=== PATIENT | female | born 1935 | race Caucasian/White ===

== ENCOUNTER 2018-02-07 10:22 | Inpatient (IN) | payer MEDICARE ==
[~2018-02-07] VITALS: Ht 170.2 cm; Wt 79.4 kg
[~2018-02-07 10:22] MED LIST: ALEVE220 M1 PO; AREDS PO; ARTHRITIS PAIN650 MG PO; ASPIR 8181 MG PO; ATENOLOL50 MG PO; BACLOFEN10 MG PO; CALTRATE 600 W1 EACH PO; CENTRUM SILVER1 EAC3 PO; DIOVAN80 MG PO; FUROSEMIDE40 MG PO; GEMFIBROZIL600 MG PO; IMIPRAMINE HCL50 MG PO; KLOR-CON 1010 MEQ PO; LEVOTHYROXINE88 MCG PO; METOPROLOL SUCC50 MG PO; OMEPRAZOLE40 MG PO; OSTEO BI-FLEX1 EAC2 PO; PROAIR HFA INH8.5 GM; PROBIOTIC COMP1 EACH PO; SERTRALINE HCL100 MG PO; SYMBICORT 16010.2 GM; TAMSULOSIN HCL0.4 MG PO; ULTRAM 50MG50 MG PO
[2018-02-07] MEDS ORDERED: SODIUM CHLORIDE 0.9% 1000ML 1,000 ML IV STA (10:23)
[2018-02-07 11:42] LABS: BASOPHILS # (AUTO) 0.1 (0.0-0.1); BASOPHILS % 0.7 % (0.0-1.0); EOSINOPHILS % 0.4 % (0.0-6.0); HEMOGLOBIN 12.4 g/dL (12.0-16.0); LYMPHOCYTES # (AUTO) 2.1 (1.0-3.2); LYMPHOCYTES % 30.1 % (18.0-39.1); MEAN CORPUSCULAR HEMOGLOBIN 29.3 pg (28-32); MEAN CORPUSCULAR HGB CONC 32.6 g/dL (31-35); MEAN CORPUSCULAR VOLUME 89.8 fL (81-99); MONOCYTES # (AUTO) 0.6 (0.2-0.8); MONOCYTES % 8.4 % (4.4-11.3); NEUTROPHILS # (AUTO) 4.1 (2.1-6.9); NEUTROPHILS % 59.8 % (38.7-80.0); PLATELET COUNT 251 x10e3/uL (140-360); RED BLOOD COUNT 4.23 x10e6/uL (3.6-5.1); RED CELL DISTRIBUTION WIDTH 13.7 % (11.7-14.4)
--- NOTE | 2018-02-07 11:48 | Diagnostic Imaging Report ---
PROCEDURE: A single AP view of the chest. COMPARISON: 05/31/17 INDICATIONS: nose, rectal bleed FINDINGS: Lines/tubes: None. Lungs: Elevated right hemidiaphragm with decreased right lung volume. Mild central vascular congestion. Pleura: There is no pleural effusion or pneumothorax. Heart and mediastinum: The cardiac silhouette is enlarged. Prominent hilar regions. Bones: No acute bony abnormality. IMPRESSION: Elevated right hemidiaphragm with decreased right lung volume. Mild central vascular congestion. Enlarged cardiac silhouette. Prominent hilar regions, could be due to adenopathy. Dictated by: Memo Mix M.D. on 02/07/2018 at 11:53 Electronically approved by: Memo Mix M.D. on 02/07/2018 at 11:53
[2018-02-07 11:51] LABS: BILIRUBIN,URINE NEGATIVE (NEGATIVE); CLARITY,URINE SL CLOUDY (CLEAR); COLOR,URINE YELLOW (YELLOW); KETONES,URINE NEGATIVE (NEGATIVE); LEUKOCYTE ESTERASE ,URINE 1+ (NEGATIVE); NITRITE,URINE NEGATIVE (NEGATIVE); PROTEIN,URINE DIPSTICK NEGATIVE (NEGATIVE); URINE UROBILINOGEN 0.2 mg/dL (0.2 - 1)
[2018-02-07 11:54] LABS: INR 1.09; PARTIAL THROMBOPLASTIN TIME 30.3 seconds (23.8-35.5); PROTHROMBIN TIME 13.3 seconds (11.9-14.5)
[2018-02-07 11:59] LABS: BACTERIA,URINE MODERATE /HPF; EPITHELIAL CELLS,URINE FEW /LPF
[2018-02-07 12:03] LABS: ALANINE AMINOTRANSFERASE 12 IU/L (0-55); ALBUMIN 3.5 g/dL (3.5-5.0); ALBUMIN/GLOBULIN RATIO 1.2 (0.8-2.0); ALKALINE PHOSPHATASE 66 IU/L (40-150); ANION GAP 13.6 mmol/L (8-16); BLOOD UREA NITROGEN 27 mg/dL (7-26); BUN/CREATININE RATIO 25 (6-25); CALCIUM 9.4 mg/dL (8.4-10.2); CARBON DIOXIDE 29 mmol/L (22-29); CHLORIDE 102 mmol/L (98-107); CREATINE KINASE 21 IU/L (29-168); CREATININE, SERUM 1.06 mg/dL (0.57-1.11); EST GLOMERULAR FILTRATION RATE 49 ML/MIN (60-); GLUCOSE 92 mg/dL (74-118); LIPASE 30 U/L (8-78); POTASSIUM 4.6 mmol/L (3.5-5.1); SODIUM 140 mmol/L (136-145)
--- NOTE | 2018-02-07 12:24 | Diagnostic Imaging Report ---
Exam: Head CT without contrast History: Dizziness Comparison studies: None Technique: Axial images were obtained from the skull base to the vertex. Coronal and sagittal images reconstructed from the axial data. Intravenous contrast: None Findings: Scalp: No abnormalities. Bones: No fractures, blastic or lytic lesions. Brain sulci: Appropriate for age. Ventricles: Normal in size and configuration. No hydrocephalus. Extra-axial spaces: No masses, no fluid collection. Parenchyma: No mass, acute hemorrhage or acute or chronic cortical vascular insults. Subtle hypodensity in the right inferior frontal white matter is nonspecific but may may reflect minimal chronic microvascular ischemic changes. Sellar/suprasellar region: No abnormalities. Craniocervical junction: Patent foramen magnum. No Chiari one malformation. Incidental findings: Atherosclerotic calcifications in the carotid siphons and in the right intradural vertebral artery. Opacified right sphenoid sinus. IMPRESSION: No acute intracranial abnormalities. Signed by: Dr. Brian Orantes M.D. on 02/07/2018 12:21 PM
[2018-02-07] MEDS ORDERED: MECLIZINE HCL 12.5 MG TAB PO ONE (12:45)
[2018-02-07] MEDS ORDERED: ASPIRIN 81 MG CHEW TAB PO ONE (13:00)
[2018-02-07] MEDS ORDERED: ONDANSETRON HCL INJ 2 MG/ML VIAL IV PRN (13:00)
[2018-02-07 13:45] VITALS: BP 187/79
[2018-02-07] MEDS ORDERED: BACLOFEN 10 MG TAB PO PRN (14:30)
[2018-02-07 14:32] VITALS: BP 187/79
[2018-02-07] MEDS: SODIUM CHLORIDE 0.9% 1000ML 1,000 ML IV SCH (15:09)
[2018-02-07] MEDS: HYDRALAZINE HCL 20 MG/ML VIAL IV PRN (15:09)
--- NOTE | 2018-02-07 15:09 | History and Physical ---
PRIMARY CARE PHYSICIAN: Dr. Fox. BARREL PLANER: Dr. House. CHIEF COMPLAINT: Nosebleed and rectal bleeding. HISTORY OF PRESENT ILLNESS: This is an 82-year-old woman with a history of GERD, now developing rectal bleeding for the past 3 weeks. She states that this bleeding has been intermittent for the past year but has been worse in the past 3 weeks. Also this morning patient had a nosebleed. Therefore, she came to the hospital. She only takes aspirin, does not take any anticoagulants and is not on antiplatelets like Plavix or Prasugrel. She is admitted for further evaluation and management. Patient also admits to dizziness for 1 week but no room-spinning. PAST MEDICAL HISTORY: Hypertension, breast cancer and lung cancer, status post right lumpectomy and right upper lobe lung resection in 2002, status post radiation therapy but no chemo, hemorrhoids, hypothyroidism, GERD, BPPV/benign paroxysmal positional vertigo, chronic dizziness with heart catheterization without any significant coronary artery disease and left ventricular ejection fraction of 50% in January of 2011. PAST SURGICAL HISTORY: Appendectomy, cholecystectomy, hysterectomy, right-sided lumpectomy and right upper lobe of the lung resection in 2002. ALLERGIES: PER THE ELECTRONIC MEDICAL RECORDS. FAMILY HISTORY/SOCIAL HISTORY: Patient is a . She has 2 children. No alcohol or illicits. She quit cigarettes 40 years ago. MEDICATIONS: Per the electronic medical records. Medications reviewed. REVIEW OF SYSTEMS: Denies any chest pain, shortness of breath, fever, chills, sweats, nausea, vomiting, diarrhea, back pain. VITAL SIGNS: Have been reviewed. PHYSICAL EXAMINATION GENERAL APPEARANCE: A tired-appearing woman resting in bed. HEENT: Anicteric. Pupils responsive to light. No oral lesions. CARDIOVASCULAR: Normal S1/S2. LUNGS: Moderate breath sounds. ABDOMEN: Soft, nontender, nondistended. EXTREMITIES: No edema or calf tenderness. NEUROLOGICALLY: Alert and oriented x3. Moving all extremities. SKIN: Dry. PSYCHIATRIC: Normal mood. LABS: Reviewed. ASSESSMENT: This is an 82-year-old woman. 1. Gastrointestinal bleed. 2. Chronic dizziness. 3. Epistaxis. 4. History of hemorrhoids. 5. Urinary tract infection. 6. Hypothyroidism. 7. Acute kidney injury. 8. Dehydration that could be contributing to dizziness. 9. History of benign paroxysmal positional vertigo. PLAN 1. Hold aspirin. 2. Use PPI. 3. GI consultation for endoscopy inpatient versus outpatient. 4. Rehydrate patient in setting of acute kidney injury. 5. Treat urinary tract infection with ceftriaxone and follow up cultures. 6. Add meclizine p.r.n. 7. Control blood pressure with home antihypertensive medication. 8. Use SCDs and for GI prophylaxis use PPI. 9. Follow up labs, follow up GI recommendations. Job#: [id number] EV
[2018-02-07 17:04] VITALS: BP 146/67
[2018-02-07] MEDS ORDERED: DIATRIZOATE MEGL/DIATRIZOA SOD 30 ML BTL PO ONE (17:18)
[2018-02-07] MEDS: TAMSULOSIN HCL 0.4 MG CAP PO SCH (17:45)
[2018-02-07] MEDS: GEMFIBROZIL 600 MG TAB PO SCH (17:46)
--- NOTE | 2018-02-07 18:14 | Consultation ---
DATE OF CONSULTATION: February 07, 2018 GASTROENTEROLOGY CONSULTATION REFERRING PHYSICIAN: Dr. Lanza. REASON FOR CONSULTATION: Rectal bleeding, left lower quadrant abdominal pain. HISTORY OF PRESENT ILLNESS: Ms. Hernandez is a pleasant 82-year-old woman who came in with urinary tract infection. She has been having intermittent bright red blood per rectum which colors the toilet water red and also is on toilet paper. It seems over the past few weeks it has been getting worse. She saw her primary doctor and received suppositories; however, did not improve the bleeding. She has not had any clots or melena. She did have a history of nosebleeds. She was feeling dizzy without symptoms of vertigo. She had no chest pain or shortness of breath. PAST MEDICAL HISTORY: Diverticulitis, hypertension, breast cancer, lung cancer, hemorrhoids with history of resection, hypothyroidism, GERD, BPV, chronic dizziness, cardiac catheterization without CAD in 2010. PAST SURGICAL HISTORY: Includes appendectomy, cholecystectomy, hysterectomy, right-sided lumpectomy, right upper lobe lung resection in 2002, colonoscopy approximately 3 years ago and hemorrhoid surgery. MEDICATIONS AND ALLERGIES: Please see MAR, medication reconciliation form. SOCIAL HISTORY: No alcohol, tobacco or illicit substances. She has a remote tobacco history. FAMILY HISTORY: Reviewed and noncontributory. REVIEW OF SYSTEMS: Twelve systems positive for that mentioned in history of present illness, otherwise unremarkable. PHYSICAL EXAMINATION: GENERAL: Pleasant, alert, oriented and in no acute distress. HEENT: Pupils are equal, round and reactive to light. NECK: Supple. LUNGS: Clear. CARDIOVASCULAR: S1 and S2. ABDOMEN: Soft. She is quite tender in the left lower quadrant without rebound, guarding or mass. EXTREMITIES: No clubbing, cyanosis or edema. PSYCHIATRIC: Calm and cooperative. NEUROLOGIC: Nonfocal. HEME/ONC: No bruising or adenopathy. Electronic health records reviewed for laboratory and radiologic studies as well as history. ASSESSMENT: 1. Rectal bleeding. 2. Left lower quadrant abdominal pain with history of diverticulitis. 3. Dizziness. 4. Epistaxis. 5. History of hemorrhoids. PLAN: At the current time, will order CAT scan to evaluate for underlying diverticulitis, which can be associated with UTI. If she has diverticulitis, will just treat that and plan outpatient colonoscopy. She reports she will have a very difficult time with a bowel prep for colonoscopy at home due to decreased mobility from her hip. We may need to perform a colonoscopy here after bowel prep tomorrow, and colonoscopy would be on Wednesday morning. Will follow tomorrow the results of CAT scan and see what we find. In the meantime, I agree with antibiotics and monitoring the patient. Will start clear liquids. Thank you very much for asking me to see Ms. Hernandez. Any questions or concerns, please do not hesitate to contact me. Job#: [id number]
[2018-02-07 19:47] LABS: CREATINE KINASE 23 IU/L (29-168)
[2018-02-07 20:35] VITALS: BP 139/60
[2018-02-07] MEDS ORDERED: CEFTRIAXONE SOD 1 GM VIAL IV ONE (21:00)
[2018-02-07] MEDS: SERTRALINE HCL 100 MG TAB PO SCH (22:39)
[2018-02-07] MEDS: MECLIZINE HCL 12.5 MG TAB PO SCH (22:39)
[2018-02-07] MEDS: VALSARTAN 80 MG TAB PO SCH (22:39)
[2018-02-07] MEDS ORDERED: SODIUM CHLORIDE 0.9% 50ML 50 ML ONE (23:02)
[2018-02-07] MEDS ORDERED: IOPAMIDOL 370 MG/ML 200 ML INFUS..BTL INJ ONE (23:02)
--- NOTE | 2018-02-07 23:12 | Diagnostic Imaging Report ---
EXAM: CT ABDOMEN AND PELVIS with IV CONTRAST DATE: 02/07/2018 4:58 PM Time stamp on Exam: 2211 hours INDICATION: Dizziness, GI bleed, right lower quadrant pain COMPARISON: None available TECHNIQUE: The abdomen and pelvis were scanned using a multidetector helical scanner. Coronal and sagittal reformations were obtained. Routine protocol performed. IV Contrast: 100 cc Isovue-370 Oral Contrast: Gastrografin CTDIvol has been reviewed. It is below the limits set by the Radiation Protocol Committee (RPC). FINDINGS: LOWER THORAX: No consolidations LIVER: No masses BILIARY: Cholecystectomy. No ductal dilation. SPLEEN: No masses PANCREAS: No masses ADRENALS: No nodules KIDNEYS: Symmetric perfusion. Peripherally calcified 1.2 cm cyst inferior pole of the right kidney. No hydronephrosis. There is a 3 cm lesion in the inferior pole of the left kidney that does not measure simple water density. GI TRACT: No distention, wall thickening or evidence of obstruction. Marked sigmoid colon diverticulosis. No fat stranding to suggests active inflammation. The appendix is not identified. VESSELS: Advanced atherosclerotic changes of the abdominal aorta without aneurysm. PERITONEUM/RETROPERITONEUM: No free air or fluid LYMPH NODES: No lymphadenopathy REPRODUCTIVE ORGANS: The uterus is not visualized. No adnexal masses. BLADDER: Unremarkable SOFT TISSUES: Unremarkable BONES: No suspicious bone lesions. IMPRESSION: Advanced sigmoid colon diverticulosis without CT findings of acute diverticulitis. Indeterminate 3 cm lesion in the inferior pole of the left kidney that does not measure simple cystic fluid. A nonemergent CT or MRI of the abdomen with and without IV contrast, renal mass protocol is recommended for further evaluation. Signed by: Dr. Shari Murdock M.D. on 02/07/2018 11:08 PM
[2018-02-08] VITALS (7 sets, daily range): BP systolic 133–187; BP diastolic 62–87
[2018-02-08] MEDS: HYDRALAZINE HCL 20 MG/ML VIAL IV PRN (00:15)
[2018-02-08] MEDS: SODIUM CHLORIDE 0.9% 1000ML 1,000 ML IV SCH ×2 (02:09→14:49)
[2018-02-08 05:47] LABS: BASOPHILS % 0.6 % (0.0-1.0); EOSINOPHILS % 0.5 % (0.0-6.0); HEMATOCRIT 35.4 % (34.2-44.1); HEMOGLOBIN 11.7 g/dL (12.0-16.0); LYMPHOCYTES # (AUTO) 2.2 (1.0-3.2); LYMPHOCYTES % 34.8 % (18.0-39.1); MEAN CORPUSCULAR HEMOGLOBIN 29.7 pg (28-32); MEAN CORPUSCULAR HGB CONC 33.1 g/dL (31-35); MEAN CORPUSCULAR VOLUME 89.8 fL (81-99); MONOCYTES # (AUTO) 0.5 (0.2-0.8); MONOCYTES % 7.6 % (4.4-11.3); NEUTROPHILS # (AUTO) 3.6 (2.1-6.9); NEUTROPHILS % 56.2 % (38.7-80.0); PLATELET COUNT 220 x10e3/uL (140-360); RED BLOOD COUNT 3.94 x10e6/uL (3.6-5.1); RED CELL DISTRIBUTION WIDTH 13.6 % (11.7-14.4)
[2018-02-08 06:11] LABS: ALANINE AMINOTRANSFERASE 11 IU/L (0-55); ALBUMIN 3.2 g/dL (3.5-5.0); ALBUMIN/GLOBULIN RATIO 1.3 (0.8-2.0); ALKALINE PHOSPHATASE 57 IU/L (40-150); ANION GAP 13.3 mmol/L (8-16); BLOOD UREA NITROGEN 20 mg/dL (7-26); BUN/CREATININE RATIO 22 (6-25); CALCIUM 9.1 mg/dL (8.4-10.2); CARBON DIOXIDE 26 mmol/L (22-29); CHLORIDE 106 mmol/L (98-107); CREATINE KINASE 23 IU/L (29-168); CREATININE, SERUM 0.92 mg/dL (0.57-1.11); EST GLOMERULAR FILTRATION RATE 58 ML/MIN (60-); GLUCOSE 107 mg/dL (74-118); POTASSIUM 4.3 mmol/L (3.5-5.1); SODIUM 141 mmol/L (136-145)
[2018-02-08] MEDS: LEVOTHYROXINE SODIUM 88 MCG TAB PO SCH (06:15)
--- NOTE | 2018-02-08 07:32 | Progress Note ---
DATE: February 08, 2018 TIME: 7:09 a.m. OVERNIGHT: Continues to have some rectal bleeding. REVIEW OF SYSTEMS: Denies any dizziness, chest pain, headache, blurred vision, or back pain. PHYSICAL EXAMINATION VITAL SIGNS: Reviewed. GENERAL: A tired-appearing woman resting in bed. HEENT: Anicteric. CARDIOVASCULAR: Normal S1 and S2. LUNGS: Moderate breath sounds. ABDOMEN: Soft and nondistended. She has tenderness in the lower quadrant region. EXTREMITIES: No edema. SKIN: Dry. PSYCHIATRIC: Flat affect. LABS: Reviewed. MEDICATIONS: Reviewed. ASSESSMENT: An 82-year-old woman with: 1. Gastrointestinal bleed. 2. Chronic dizziness. 3. Benign positional vertigo. 4. Epistaxis. 5. History of hemorrhoidectomy. 6. Urinary tract infection. 7. Hypothyroidism. 8. Acute kidney injury. 9. Dehydration. 10. A 3-cm lesion in the left kidney. 11. Sigmoid colon diverticulosis. PLAN 1. Continue medication regimen. 2. Continue antibiotics. 3. Follow up cultures. 4. Follow up GI recommendations. 5. CT scan of the abdomen shows sigmoid colon diverticulosis, but no inflammatory changes. 6. Will obtain MRI of the abdomen to evaluate the 3-cm lesion of the left kidney. 7. Renal function improving. Job#: [id number] FIDENCIO
[2018-02-08] MEDS ORDERED: GADOBENATE DIMEGLUMINE 1 ML IV ONE (08:40)
[2018-02-08] MEDS: PANTOPRAZOLE 40 MG 10ML VIAL IV SCH (08:48)
[2018-02-08] MEDS: METOPROLOL SUCCINATE 50 MG TAB XL PO SCH (08:48)
[2018-02-08] MEDS: MECLIZINE HCL 12.5 MG TAB PO SCH ×2 (08:48→21:17)
[2018-02-08] MEDS: GEMFIBROZIL 600 MG TAB PO SCH ×2 (08:48→17:06)
[2018-02-08] MEDS: TAMSULOSIN HCL 0.4 MG CAP PO SCH ×2 (08:48→17:06)
[2018-02-08] MEDS: IMIPRAMINE HCL 50 MG TAB PO SCH (11:38)
[2018-02-08] MEDS: ACETAMINOPHEN 325 MG TAB PO PRN (12:29)
[2018-02-08] MEDS ORDERED: PEG (High)/E-LYTE SOLN 4,000 ML BTL PO NR (15:15)
[2018-02-08] MEDS: SERTRALINE HCL 100 MG TAB PO SCH (21:17)
[2018-02-08] MEDS: VALSARTAN 80 MG TAB PO SCH (21:17)
[2018-02-09] VITALS (7 sets, daily range): BP systolic 137–197; BP diastolic 64–79
[2018-02-09] MEDS: SODIUM CHLORIDE 0.9% 1000ML 1,000 ML IV SCH ×3 (01:54→23:31)
[2018-02-09] MEDS: LEVOTHYROXINE SODIUM 88 MCG TAB PO SCH (04:14)
[2018-02-09] MEDS ORDERED: Meclizine Hcl PO (07:43)
[2018-02-09] MEDS ORDERED: PANTOPRAZOLE SO40 MG PO (07:43)
[2018-02-09] MEDS ORDERED: KEFLEX500 MG PO (07:47)
[2018-02-09] MEDS: TAMSULOSIN HCL 0.4 MG CAP PO SCH ×2 (07:48→16:35)
[2018-02-09] MEDS: MECLIZINE HCL 12.5 MG TAB PO SCH ×2 (07:48→20:26)
[2018-02-09] MEDS: GEMFIBROZIL 600 MG TAB PO SCH ×2 (07:49→16:35)
[2018-02-09] MEDS: IMIPRAMINE HCL 50 MG TAB PO SCH (07:49)
[2018-02-09] MEDS: METOPROLOL SUCCINATE 50 MG TAB XL PO SCH (07:49)
[2018-02-09] MEDS: HYDRALAZINE HCL 20 MG/ML VIAL IV PRN (08:16)
[2018-02-09] MEDS: CEFTRIAXONE SOD 1 GM VIAL IV SCH (08:16)
[2018-02-09] MEDS: PANTOPRAZOLE 40 MG 10ML VIAL IV SCH (08:16)
[2018-02-09 10:05] LABS: BASOPHILS % 0.7 % (0.0-1.0); EOSINOPHILS # (AUTO) 0.1 (0.0-0.4); EOSINOPHILS % 0.8 % (0.0-6.0); HEMATOCRIT 35.6 % (34.2-44.1); HEMOGLOBIN 11.6 g/dL (12.0-16.0); LYMPHOCYTES # (AUTO) 1.6 (1.0-3.2); LYMPHOCYTES % 27.3 % (18.0-39.1); MEAN CORPUSCULAR HEMOGLOBIN 29.3 pg (28-32); MEAN CORPUSCULAR HGB CONC 32.6 g/dL (31-35); MEAN CORPUSCULAR VOLUME 89.9 fL (81-99); MONOCYTES # (AUTO) 0.5 (0.2-0.8); MONOCYTES % 8.6 % (4.4-11.3); NEUTROPHILS # (AUTO) 3.7 (2.1-6.9); NEUTROPHILS % 62.1 % (38.7-80.0); PLATELET COUNT 216 x10e3/uL (140-360); RED BLOOD COUNT 3.96 x10e6/uL (3.6-5.1); RED CELL DISTRIBUTION WIDTH 13.7 % (11.7-14.4)
[2018-02-09 10:28] LABS: ANION GAP 12.9 mmol/L (8-16); BLOOD UREA NITROGEN 14 mg/dL (7-26); BUN/CREATININE RATIO 18 (6-25); CALCIUM 8.8 mg/dL (8.4-10.2); CARBON DIOXIDE 26 mmol/L (22-29); CHLORIDE 107 mmol/L (98-107); CREATININE, SERUM 0.77 mg/dL (0.57-1.11); EST GLOMERULAR FILTRATION RATE > 60 ML/MIN (60-); GLUCOSE 99 mg/dL (74-118); POTASSIUM 3.9 mmol/L (3.5-5.1); SODIUM 142 mmol/L (136-145)
[2018-02-09] MEDS: ACETAMINOPHEN 325 MG TAB PO PRN ×2 (14:24→20:26)
[2018-02-09] MEDS: HYDROCORTISONE 2.5% PR CRM 1 OZ TUBE PR SCH ×2 (14:24→20:26)
[2018-02-09] MEDS ORDERED: PROPOFOL IV EMULSION 10 MG/ML 50 ML VIAL ONE (17:17)
[2018-02-09] MEDS ORDERED: LIDOCAINE HCL 2% LOCAL INJ 5 ML SDV VIAL INJ ONE (17:17)
[2018-02-09] MEDS ORDERED: CITRATE OF MAGNESIA 300ML BOTTLE PO ONE (20:00)
[2018-02-09] MEDS: VALSARTAN 80 MG TAB PO SCH (20:26)
[2018-02-09] MEDS: SERTRALINE HCL 100 MG TAB PO SCH (20:26)
--- NOTE | 2018-02-09 22:37 | Consultation ---
DATE OF CONSULTATION: February 09, 2018 CHIEF COMPLAINT: Rectal bleeding. HISTORY OF PRESENT ILLNESS: The patient is 82-year-old female who is admitted with 2 weeks' history of chronic intermittent rectal bleeding of bright red blood. Patient has known history of hemorrhoidal problems, status post previous hemorrhoidectomy. Patient denied constipation or diarrhea. PAST MEDICAL HISTORY: Positive for hypertension, breast cancer, lung cancer, GERD, hypothyroidism. SURGICAL HISTORY: Positive for lung resection, right lumpectomy, hemorrhoidectomy, appendectomy, cholecystectomy, and hysterectomy. SOCIAL HABITS: The patient denied current smoking, alcohol abuse. REVIEW OF SYSTEMS: No chest pain, no shortness of breath. ALLERGIES: SHE IS ALLERGIC TO SULFA. PHYSICAL EXAMINATION: VITAL SIGNS: Stable, afebrile. GENERAL: Patient is awake, alert, in no apparent distress. HEENT: Sclerae nonicteric. NECK: Supple. LUNGS: Clear. HEART: Regular rate and rhythm. ABDOMEN: Soft, nontender. : Anal exam revealed nonbleeding internal and external hemorrhoids. LABORATORY DATA: White cell count of 6, hemoglobin of 11. Creatinine of 1.0. Colonoscopy today revealed nonbleeding diverticulosis in the left colon as well as internal and external hemorrhoids, nonactive at present time. ASSESSMENT: Chronic recurrent rectal bleeding most likely secondary to hemorrhoidal bleeding. PLAN: Recommend stapled hemorrhoidectomy under anesthesia. Attendant risks discussed with patient. Thank you. Job#: [id number]
[2018-02-10] VITALS (7 sets, daily range): BP systolic 104–199; BP diastolic 51–81
[2018-02-10] MEDS: LEVOTHYROXINE SODIUM 88 MCG TAB PO SCH (04:31)
[2018-02-10 05:34] LABS: BASOPHILS % 0.6 % (0.0-1.0); EOSINOPHILS # (AUTO) 0.1 (0.0-0.4); EOSINOPHILS % 0.7 % (0.0-6.0); HEMATOCRIT 34.4 % (34.2-44.1); HEMOGLOBIN 11.2 g/dL (12.0-16.0); LYMPHOCYTES # (AUTO) 2.3 (1.0-3.2); LYMPHOCYTES % 33.5 % (18.0-39.1); MEAN CORPUSCULAR HEMOGLOBIN 29.4 pg (28-32); MEAN CORPUSCULAR HGB CONC 32.6 g/dL (31-35); MEAN CORPUSCULAR VOLUME 90.3 fL (81-99); MONOCYTES # (AUTO) 0.6 (0.2-0.8); MONOCYTES % 8.3 % (4.4-11.3); NEUTROPHILS # (AUTO) 3.8 (2.1-6.9); NEUTROPHILS % 56.5 % (38.7-80.0); PLATELET COUNT 207 x10e3/uL (140-360); RED BLOOD COUNT 3.81 x10e6/uL (3.6-5.1)
[2018-02-10 05:58] LABS: ANION GAP 11.7 mmol/L (8-16); BLOOD UREA NITROGEN 15 mg/dL (7-26); BUN/CREATININE RATIO 20 (6-25); CALCIUM 8.8 mg/dL (8.4-10.2); CARBON DIOXIDE 25 mmol/L (22-29); CHLORIDE 110 mmol/L (98-107); CREATININE, SERUM 0.75 mg/dL (0.57-1.11); EST GLOMERULAR FILTRATION RATE > 60 ML/MIN (60-); GLUCOSE 115 mg/dL (74-118); POTASSIUM 3.7 mmol/L (3.5-5.1); SODIUM 143 mmol/L (136-145)
[2018-02-10] MEDS: SODIUM CHLORIDE 0.9% 1000ML 1,000 ML IV SCH ×2 (07:29→20:00)
[2018-02-10] MEDS ORDERED: LABETALOL HCL 5 MG/ML 20ML VIAL IV STA (07:42)
[2018-02-10] MEDS: IMIPRAMINE HCL 50 MG TAB PO SCH (08:24)
[2018-02-10] MEDS: GEMFIBROZIL 600 MG TAB PO SCH ×2 (08:24→16:39)
[2018-02-10] MEDS: HYDROCORTISONE 2.5% PR CRM 1 OZ TUBE PR SCH ×3 (08:24→21:00)
[2018-02-10] MEDS: CEFTRIAXONE SOD 1 GM VIAL IV SCH (08:24)
[2018-02-10] MEDS: TAMSULOSIN HCL 0.4 MG CAP PO SCH ×2 (08:24→16:39)
[2018-02-10] MEDS: METOPROLOL SUCCINATE 50 MG TAB XL PO SCH (08:24)
[2018-02-10] MEDS: MECLIZINE HCL 12.5 MG TAB PO SCH ×2 (08:24→21:33)
[2018-02-10] MEDS: PANTOPRAZOLE 40 MG 10ML VIAL IV SCH (08:24)
[2018-02-10] MEDS: HYDRALAZINE HCL 20 MG/ML VIAL IV PRN (12:09)
[2018-02-10] MEDS ORDERED: GELATIN SPONGE SZ 100 ONE (12:58)
[2018-02-10] MEDS ORDERED: BUPIVACAINE 0.5%/EPI 30 ML SDV INJ ONE (12:58)
[2018-02-10] MEDS ORDERED: LIDOCAINE HCL 2% 30 ML TUBE ONE (12:58)
[2018-02-10] MEDS ORDERED: MORPHINE SULFATE INJ 4 MG/ML INJ IV PRN (14:45)
[2018-02-10] MEDS ORDERED: FENTANYL CITRATE/PF 100MCG/2 ML INJ ONE ×2 (14:53→17:53)
[2018-02-10] MEDS ORDERED: ACETAMINOPHEN 1000 MG/100 ML 100 ML IV ONE (15:00)
[2018-02-10] MEDS ORDERED: KETOROLAC TROMETHAMINE 30 MG/ML VIAL ONE (15:00)
--- NOTE | 2018-02-10 15:21 | Operative Report ---
DATE OF PROCEDURE: February 10, 2018 PREOPERATIVE DIAGNOSIS: Prolapsing hemorrhoidal bleeding. POSTOPERATIVE DIAGNOSIS: Prolapsing hemorrhoidal bleeding. OPERATIVE PROCEDURE: Stapled hemorrhoidectomy. ANESTHESIA: General endotracheal. INDICATIONS: An 82-year-old female with history of rectal bleeding, and colonoscopy revealed internal and external hemorrhoids with prolapse. Patient has consented for hemorrhoidectomy with all attendant risks discussed. PROCEDURE FINDINGS: Large prolapsed internal hemorrhoids and external component. DESCRIPTION OF PROCEDURE: The patient was brought to the OR and intubated. She was then repositioned in lithotomy, the anal area prepped with Betadine and draped in sterile fashion. An anal dilator was inserted. Local anesthesia of quarter-strength Marcaine with epinephrine was injected around the anal opening for a local block. Using the PPH instrument, the anal retractor was first, a stitch to the skin with interrupted 2-0 Vicryl stitches. We then proceeded to use the suture placer to initiate the pursestring stitch at 3 o'clock position 2 cm above the dentate line using 0 Prolene suture. We proceeded to place 3 submucosal stitches around the anal canal per quarters of the circumference until the pursestring stitches complete. The PPH staple instrument was then inserted with the anvil beyond the pursestring stitch, which was then tied down to the shaft of the instrument with a surgeon's knot. Traction was maintained on the pursestring stitch in a caudad direction as we closed the instrument, dropping the hemorrhoid tissue inside the head of the instrument and the anvil. The instrument was fired and held for 30 seconds. We then proceeded to open the instrument and remove the instrument from the anal canal. The staple line was checked for bleeding points, hemostasis achieved. We then inserted a Gelfoam with Xylocaine jelly into the anal canal for postoperative pain control and hemostasis. Patient was then extubated and transported to the recovery room in guarded condition. Estimated blood loss 5 mL. Job#: [id number] EV
[2018-02-10] MEDS ORDERED: DEXAMETHASONE SOD PHOS INJ 4 MG/ML VIAL ONE (17:39)
[2018-02-10] MEDS ORDERED: LIDOCAINE HCL 2% LOCAL INJ 5 ML SDV VIAL INJ ONE (17:39)
[2018-02-10] MEDS ORDERED: PROPOFOL IV EMULSION 10 MG/ML 20 ML VIAL ONE (17:39)
[2018-02-10] MEDS ORDERED: ONDANSETRON HCL INJ 2 MG/ML VIAL ONE (17:39)
[2018-02-10] MEDS ORDERED: SEVOFLURANE INHAL SOLN 250 ML PEN BTL ONE (17:39)
[2018-02-10] MEDS: VALSARTAN 80 MG TAB PO SCH (21:00)
[2018-02-10] MEDS: SERTRALINE HCL 100 MG TAB PO SCH (21:33)
[2018-02-11] VITALS: BP 120/57
[2018-02-11 04:50] LABS: BASOPHILS % 0.5 % (0.0-1.0); EOSINOPHILS % 0.5 % (0.0-6.0); HEMATOCRIT 32.4 % (34.2-44.1); HEMOGLOBIN 10.2 g/dL (12.0-16.0); LYMPHOCYTES # (AUTO) 1.3 (1.0-3.2); LYMPHOCYTES % 19.2 % (18.0-39.1); MEAN CORPUSCULAR HEMOGLOBIN 29.4 pg (28-32); MEAN CORPUSCULAR HGB CONC 31.5 g/dL (31-35); MEAN CORPUSCULAR VOLUME 93.4 fL (81-99); MONOCYTES # (AUTO) 0.5 (0.2-0.8); MONOCYTES % 8.1 % (4.4-11.3); NEUTROPHILS # (AUTO) 4.7 (2.1-6.9); NEUTROPHILS % 71.2 % (38.7-80.0); PLATELET COUNT 225 x10e3/uL (140-360); RED BLOOD COUNT 3.47 x10e6/uL (3.6-5.1); RED CELL DISTRIBUTION WIDTH 14.1 % (11.7-14.4)
[2018-02-11 05:14] LABS: ANION GAP 11.1 mmol/L (8-16); BLOOD UREA NITROGEN 15 mg/dL (7-26); BUN/CREATININE RATIO 19 (6-25); CALCIUM 8.3 mg/dL (8.4-10.2); CARBON DIOXIDE 26 mmol/L (22-29); CHLORIDE 110 mmol/L (98-107); CREATININE, SERUM 0.77 mg/dL (0.57-1.11); EST GLOMERULAR FILTRATION RATE > 60 ML/MIN (60-); GLUCOSE 105 mg/dL (74-118); POTASSIUM 4.1 mmol/L (3.5-5.1); SODIUM 143 mmol/L (136-145)
[2018-02-11] MEDS: LEVOTHYROXINE SODIUM 88 MCG TAB PO SCH (06:10)
[2018-02-11] MEDS: CEFTRIAXONE SOD 1 GM VIAL IV SCH (07:45)
[2018-02-11 08:07] VITALS: BP 154/70
--- NOTE | 2018-02-11 09:08 | Progress Note ---
DATE: February 09, 2018 TIME: 7 a.m. OVERNIGHT: The patient positive for E. coli in the urine. REVIEW OF SYSTEMS: Denies any dizziness, chest pain, shortness of breath. Denies any back pain, leg pain or blurred vision. PHYSICAL EXAMINATION VITAL SIGNS: Have been reviewed. GENERAL: A tired-appearing woman resting in bed. HEENT: Anicteric. CARDIOVASCULAR: Normal S1 and S2. LUNGS: Moderate breath sounds. ABDOMEN: Soft and nontender. Mild pain in the left lower quadrant. EXTREMITIES: No edema. SKIN: Dry. PSYCHIATRIC: Flat affect. LABS: Reviewed. MEDICATIONS: Reviewed. ASSESSMENT: An 82-year-old woman with: 1. Gastrointestinal bleed. 2. Chronic dizziness. 3. Escherichia coli urinary tract infection. 4. Benign positional vertigo. 5. Epistaxis. 6. History of hemorrhoidectomy. 7. Urinary tract infection. 8. Hypothyroidism. 9. Acute kidney injury. 10. Dehydration. 11. A 3-cm lesion in the left kidney. 12. Sigmoid colon diverticulosis. PLAN 1. Continue treatment of E. coli urinary tract infection. 2. Follow up with GI recommendations. 3. The patient will follow up outpatient for the 3-cm lesion in the left kidney, which is chronic and she is aware of. Job#: [id number] FIDENCIO
--- NOTE | 2018-02-11 09:30 | Progress Note ---
DATE: February 10, 2018 TIME: 7:35 a.m. OVERNIGHT: Patient found to have hemorrhoids, likely cause of the bleeding. Surgery has been consulted for hemorrhoidectomy. REVIEW OF SYSTEMS: Denies any dizziness, chest pain, shortness of breath, fever, chills, sweats, leg pain, back pain, blurred vision. PHYSICAL EXAMINATION: VITAL SIGNS: Reviewed. GENERAL APPEARANCE: Tired-appearing woman resting in bed. HEENT: Anicteric. CARDIOVASCULAR: Normal S1 and S2. LUNGS: Moderate breath sounds. ABDOMEN: Soft, nondistended. Mild tenderness in left lower quadrant. EXTREMITIES: No edema or calf tenderness. NEUROLOGICAL: Alert and appropriate. Moving all extremities. SKIN: Dry. PSYCHIATRIC: Flat affect. LABS: Reviewed. MEDICATIONS: Reviewed. ASSESSMENT: An 82-year-old woman. 1. Internal hemorrhoids. 2. Gastrointestinal bleed. 3. Chronic dizziness. 4. Benign paroxysmal positional vertigo. 5. Escherichia coli urinary tract infection. 6. Epistaxis. 7. Acute kidney injury. 8. Hypothyroidism. 9. Dehydration. 10. A 3-cm lesion in left kidney, which is chronic. 11. Sigmoid colon diverticulosis. PLAN: 1. Surgery consulted for possible hemorrhoidectomy. 2. Continue pain control. 3. Continue treatment for E. coli urinary tract infection. 4. Follow up counts. 5. Patient will followup outpatient for the management of 3-cm lesion in the left kidney. Job#: [id number]
[2018-02-11] MEDS: PANTOPRAZOLE 40 MG 10ML VIAL IV SCH (09:46)
[2018-02-11] MEDS: GEMFIBROZIL 600 MG TAB PO SCH (09:46)
[2018-02-11] MEDS: MECLIZINE HCL 12.5 MG TAB PO SCH (09:46)
[2018-02-11] MEDS: IMIPRAMINE HCL 50 MG TAB PO SCH (09:46)
[2018-02-11] MEDS: TAMSULOSIN HCL 0.4 MG CAP PO SCH (09:46)
[2018-02-11] MEDS: METOPROLOL SUCCINATE 50 MG TAB XL PO SCH (09:47)
[2018-02-11] MEDS: HYDROCORTISONE 2.5% PR CRM 1 OZ TUBE PR SCH ×2 (09:51→15:30)
[2018-02-11] MEDS: SODIUM CHLORIDE 0.9% 1000ML 1,000 ML IV SCH (10:09)
[2018-02-11 10:51] VITALS: BP 154/70
[2018-02-11 11:51] VITALS: BP 129/58
--- NOTE | 2018-02-11 13:11 | Discharge Summary ---
PRINCIPAL DIAGNOSES 1. Internal hemorrhoid, status post stapling and hemorrhoidectomy. 2. Escherichia coli urinary tract infection. 3. Gastrointestinal bleed, likely secondary to bleeding hemorrhoid. 4. Acute kidney injury. 5. Epistaxis. 6. Benign paroxysmal positional vertigo. 7. Chronic dizziness. 8. Sigmoid colon diverticulosis. SECONDARY DIAGNOSIS: A 3-cm lesion of the left kidney. CHIEF COMPLAINT: Rectal bleeding. HISTORY OF PRESENT ILLNESS: This is an 82-year-old woman with rectal bleeding. Please refer to the H and P for further details. HOSPITAL COURSE: The patient found to have internal hemorrhoids, underwent stapled hemorrhoidectomy. Also had E. coli urinary tract infection for which she was treated with medication regimen. Patient is doing better after hemorrhoidectomy. No more bleeding. She was also dehydrated and was rehydrated. She had dizziness likely due to chronic blood loss. Patient does have a 3-cm lesion on left kidney which will follow up outpatient as a chronic finding. She is aware of the finding. She also has sigmoid colon diverticulosis. Patient doing better and currently appropriate for discharge once cleared by surgery. DISCHARGE MEDICATIONS: Per electronic medical record. FOLLOWUP: Primary care doctor in 1 week. Also follow up with GI service. CONDITION ON DISCHARGE: Stable and improved. DISCHARGE LOCATION: Home. PILI SMITH MD Job#: [id number] TA
== END 2018-02-11 15:40 | disposition home or self-care (01) | DRG 348 ==
LOC: ER 10:22 → ERHOLD 13:06 → MED/SURG 13:31
PROVIDERS: ADMIT Internal Medicine; ATTEND Internal Medicine
PROC: 0DJD8ZZ Inspection of Lower Intestinal Tract, Via Natural or Artificial Opening Endoscopic (ICD-10-PCS; 2018-02-09)
PROC: 06LY3ZC Occlusion of Hemorrhoidal Plexus, Percutaneous Approach (ICD-10-PCS; principal; 2018-02-10 13:00)
DX: K64.8 Other hemorrhoids (principal); N39.0 Urinary tract infection, site not specified; N17.9 Acute kidney failure, unspecified; K57.32 Diverticulitis of large intestine without perforation or abscess without bleeding; K62.5 Hemorrhage of anus and rectum; Z85.3 Personal history of malignant neoplasm of breast; E86.0 Dehydration; E03.9 Hypothyroidism, unspecified; R04.0 Epistaxis; B96.20 Unspecified Escherichia coli [E. coli] as the cause of diseases classified elsewhere; H81.10 Benign paroxysmal vertigo, unspecified ear; Z88.2 Allergy status to sulfonamides; N28.9 Disorder of kidney and ureter, unspecified
CPT/HCPCS: 36415; 45378; 70450; 71045; 74177; 80048; 80053; 81001; 82270; 82550; 82553; 83690; 83880; 84443; 84484; 85025; 85610; 85730; 86850; 86900; 87086; 87186; 88304; 93005; 99284; J0360; J0696; J1100; J1885; J2001; J2270; J2405; J7030; Q9967

== ENCOUNTER → 2018-05-11 | Day surgery (SDC) | payer MEDICARE ==
[2018-05-09 13:26] LABS: BASOPHILS # (AUTO) 0.1 (0.0-0.1); BASOPHILS % 0.7 % (0.0-1.0); EOSINOPHILS % 0.5 % (0.0-6.0); LYMPHOCYTES # (AUTO) 3.1 (1.0-3.2); LYMPHOCYTES % 35.7 % (18.0-39.1); MEAN CORPUSCULAR HEMOGLOBIN 29.8 pg (28-32); MEAN CORPUSCULAR HGB CONC 32.5 g/dL (31-35); MEAN CORPUSCULAR VOLUME 91.7 fL (81-99); MONOCYTES # (AUTO) 0.7 (0.2-0.8); MONOCYTES % 8.5 % (4.4-11.3); NEUTROPHILS # (AUTO) 4.6 (2.1-6.9); NEUTROPHILS % 53.6 % (38.7-80.0); PLATELET COUNT 321 x10e3/uL (140-360); RED BLOOD COUNT 4.36 x10e6/uL (3.6-5.1); RED CELL DISTRIBUTION WIDTH 14.9 % (11.7-14.4)
[~2018-05-11] MED LIST changes: +ACETAMINOPHEN 1000 MG/100 ML IV ONE; +ASPIR 8181 MG; +BENICAR5 MG; +BUPIVACAINE 0.5%/EPI 30 ML SDV INJ ONE; +CEFAZOLIN SOD 2 GM/D5W 50ML 50 ML IV ONE; +DEXAMETHASONE SOD PHOS INJ 4 MG/ML VIAL ONE; +FENTANYL CITRATE/PF 100MCG/2 ML INJ ONE; +ISOFLURANE INHAL SOLN 250 ML BTL INH ONE; +KEFLEX500 MG PO; +KETOROLAC TROMETHAMINE 30 MG/ML VIAL ONE; +Meclizine Hcl PO; +NEXIUM40 MG; +NORCO 5-325 TA1 EACH PO; +ONDANSETRON HCL INJ 2 MG/ML VIAL ONE; +PANTOPRAZOLE SO40 MG PO; +PROPOFOL IV EMULSION 10 MG/ML 20 ML VIAL ONE
[2018-05-11 09:30] VITALS: BP 145/69
--- NOTE | 2018-05-12 14:04 | Operative Report ---
DATE OF PROCEDURE: May 11, 2018 PREOPERATIVE DIAGNOSES 1. Right knee lateral meniscus tear. 2. Right knee degenerative joint disease of the knee. POSTOPERATIVE DIAGNOSES 1. Right knee lateral meniscus tear. 2. Right knee degenerative joint disease of the knee. PROCEDURES PERFORMED 1. Right knee examination under anesthesia. 2. Right knee arthroscopy. 3. Right knee partial lateral meniscectomy. 4. Right knee chondroplasties of the patella, trochlea, medial femoral condyle, medial tibial plateau, lateral femoral condyle and lateral tibial plateau. HYDRAULIC CHAIR ASSEMBLER: Mecca Morrison ANESTHESIA: General endotracheal intubation anesthesia. IV FLUIDS: Per the anesthesia record. OPERATIVE PROCEDURE IN DETAIL: Ms. Hernandez was taken to the operating room and placed in the supine position on the operating table. Following induction of general anesthesia as well as endotracheal intubation, the patient's right lower extremity was examined under anesthesia. Patient was found to have a mild effusion within the knee joint but an otherwise ligamentously stable knee. The lower extremity was prepped and draped in standard surgical fashion. A 2-portal technique was used to provide this patient arthroscopic evaluation of the knee joint. Examination of the suprapatellar pouch, medial and lateral gutters found no evidence of loose bodies. There was, however, chondromalacia of the patella and trochlear surfaces. The scope was advanced to the medial compartment. Chondromalacia of the medial femoral condyle and medial tibial plateau was encountered. A 4.0 shaver was used to provide chondroplasties of these surfaces. The scope was advanced to the intercondylar notch. The anterior cruciate ligament was identified and found to be intact. The scope was then placed in the lateral compartment, and a macerated lateral meniscus tear was encountered. There was also chondromalacia of the articulating surfaces. A partial lateral meniscectomy was performed. Chondroplasties of the lateral femoral condyle and lateral tibial plateau were performed at this time. The scope was then placed in the suprapatellar pouch, and chondroplasties of the patella and trochlea were performed. The knee was deflated of its sterile normal saline. Each of the portal sites were closed. The portal sites as well as the knee itself were injected with 0.5% Marcaine with epinephrine. Sterile dressings were applied. The patient was awakened and taken to the postanesthesia care unit in stable condition. Job#: [id number] MH
== END | disposition home or self-care (01) ==
LOC: OR 05:15
PROVIDERS: ATTEND Specialist
DX: S83.281A Other tear of lateral meniscus, current injury, right knee, initial encounter (principal); M17.11 Unilateral primary osteoarthritis, right knee; S83.221A Peripheral tear of medial meniscus, current injury, right knee, initial encounter; M22.41 Chondromalacia patellae, right knee; M70.61 Trochanteric bursitis, right hip; M16.11 Unilateral primary osteoarthritis, right hip; I10 Essential (primary) hypertension; J44.9 Chronic obstructive pulmonary disease, unspecified; K21.9 Gastro-esophageal reflux disease without esophagitis; K57.90 Diverticulosis of intestine, part unspecified, without perforation or abscess without bleeding; D30.02 Benign neoplasm of left kidney; F41.9 Anxiety disorder, unspecified; X58.XXXA Exposure to other specified factors, initial encounter; Z88.2 Allergy status to sulfonamides; Z01.812 Encounter for preprocedural laboratory examination; Z79.82 Long term (current) use of aspirin; Z82.61 Family history of arthritis
CPT/HCPCS: 29881; 36415; 85025; J1100; J1885; J2405; J0690

== ENCOUNTER → 2019-03-30 | Outpatient (CLI) | payer MEDICARE ==
[~2019-03-30] MED LIST changes: -ACETAMINOPHEN 1000 MG/100 ML IV ONE; -BUPIVACAINE 0.5%/EPI 30 ML SDV INJ ONE; -CEFAZOLIN SOD 2 GM/D5W 50ML 50 ML IV ONE; -DEXAMETHASONE SOD PHOS INJ 4 MG/ML VIAL ONE; -FENTANYL CITRATE/PF 100MCG/2 ML INJ ONE; -ISOFLURANE INHAL SOLN 250 ML BTL INH ONE; -KETOROLAC TROMETHAMINE 30 MG/ML VIAL ONE; -ONDANSETRON HCL INJ 2 MG/ML VIAL ONE; -PROPOFOL IV EMULSION 10 MG/ML 20 ML VIAL ONE; +REGADENOSON 0.4 MG/5 ML SYR IV ONE
--- NOTE | 2019-04-05 10:09 | Myoview Stress Test ---
DATE OF STUDY: 03/30/2019 07:36:00 Stress Test - Treadmill ONLY PROCEDURE TITLE: Rest stress single isotope SPECT imaging with pharmacologic stress and gated SPECT imaging. PROCEDURE IN DETAIL: Pharmacologic stress testing was performed using regadenoson per protocol. The heart rate was 59 beats per minute at rest and increased to 84 beats per minute during the regadenoson infusion. The resting blood pressure was 146/76 mmHg and increased to 158/71 mmHg, which is a normal response. The resting electrocardiogram demonstrated normal sinus rhythm. There were no ST-segment changes suggestive of myocardial ischemia. Myocardial perfusion imaging was performed at rest following the injection of 11 mCi of tetrofosmin. At peak pharmacologic effect, the patient was injected with 32.9 mCi of tetrofosmin. Gated post-stress tomographic imaging was performed. FINDINGS: The overall quality of study is fair. Left ventricular cavity is noted to be normal size on the rest and stress studies. SPECT images demonstrate a medium-sized mild perfusion defect in the anterior wall at rest that improves with stress. Gated SPECT imaging reveals normal myocardial thickening and wall motion. The left ventricular ejection fraction was calculated to be 60%. IMPRESSION: Myocardial perfusion imaging is normal. There is a medium-sized area of attenuation artifact in the anterior wall. Overall, left ventricular systolic function was normal without regional wall motion abnormalities. Taylor Garcia MD ABS/MODL /[id number]
== END ==
LOC: NM 07:12
PROVIDERS: ATTEND Internal Medicine Interventional Cardiology
DX: I20.8 Other forms of angina pectoris (principal)
CPT/HCPCS: 78452; 93017; 93306; A9502; J2785

== ENCOUNTER 2019-04-18 07:43 | Inpatient (IN) | payer MEDICARE ==
--- NOTE | 2019-04-17 09:40 | Diagnostic Imaging Report ---
EXAMINATION: CHEST 2 VIEWS INDICATION: Pre-operative COMPARISON: None FINDINGS: LINES/TUBES:None LUNGS:The lungs are well-inflated. No focal consolidation or pulmonary edema. PLEURA:No pleural effusion or pneumothorax. MEDIASTINUM:The cardiomediastinal silhouette appears normal in size and shape. BONES/SOFT TISSUES:No acute osseous injury. Mild degenerative changes of the visualized spine. ABDOMEN:No free air under the diaphragm. IMPRESSION: No focal pneumonia or pulmonary edema. Signed by: Diane Atwood MD on 04/17/2019 9:36 AM
[2019-04-17 09:47] LABS: BASOPHILS # (AUTO) 0.1 (0.0-0.1); BASOPHILS % 1.1 % (0.0-1.0); EOSINOPHILS % 0.4 % (0.0-6.0); HEMATOCRIT 40.6 % (34.2-44.1); HEMOGLOBIN 12.8 g/dL (12.0-16.0); LYMPHOCYTES # (AUTO) 1.7 (1.0-3.2); LYMPHOCYTES % 30.4 % (18.0-39.1); MEAN CORPUSCULAR HEMOGLOBIN 28.7 pg (28-32); MEAN CORPUSCULAR HGB CONC 31.5 g/dL (31-35); MONOCYTES # (AUTO) 0.5 (0.2-0.8); MONOCYTES % 8.3 % (4.4-11.3); NEUTROPHILS # (AUTO) 3.4 (2.1-6.9); NEUTROPHILS % 59.4 % (38.7-80.0); PLATELET COUNT 299 x10e3/uL (140-360); RED BLOOD COUNT 4.46 x10e6/uL (3.6-5.1); RED CELL DISTRIBUTION WIDTH 13.8 % (11.7-14.4)
[~2019-04-18] VITALS: Ht 170.2 cm; Wt 78.5 kg
[~2019-04-18 07:43] MED LIST changes: +BACITRACIN 50,000 UNIT VIAL ONE; -BENICAR5 MG; +BENICAR5 MG PO; +PROBIOTIC & AC1 EACH; -REGADENOSON 0.4 MG/5 ML SYR IV ONE; +ROPIVACAINE 246.25 MG, EPINEPHRINE HCL 1:1000 1ML 0.5 MG, CLONIDINE HCL 0.08 MG, KETORO... INJ ONE; +SODIUM CHLORIDE 0.9% 500ML 500 ML ONE; +TRANEXAMIC ACID 1,000 MG/10 ML ML ONE; +VANCOMYCIN HCL 1,000 MG ONE
[2019-04-18] MEDS ORDERED: CELECOXIB 200 MG CAP ONE (08:29)
[2019-04-18] MEDS ORDERED: GABAPENTIN 300 MG CAP ONE (08:29)
[2019-04-18] MEDS ORDERED: DEXAMETHASONE SOD PHOS 10 MG/1 ML VIAL ONE (08:29)
[2019-04-18] MEDS ORDERED: CEFAZOLIN SOD 1 GM/NS 50ML 100 ML IV ONE (08:30)
[2019-04-18] MEDS ORDERED: BUPIVACAINE 7.5MG/ML /DEXTROSE 82.5MG/ML 2 ML AMP INJ ONE (10:07)
[2019-04-18] MEDS ORDERED: KETOROLAC TROMETHAMINE 30 MG/ML VIAL IV PRN (11:30)
[2019-04-18] MEDS ORDERED: DOCUSATE SODIUM 100 MG CAP PO PRN (11:30)
[2019-04-18] MEDS ORDERED: ACETAMINOPHEN 650 MG SUPP PR PRN (11:30)
[2019-04-18] MEDS ORDERED: DIPHENHYDRAMINE HCL INJ 50 MG/ML VIAL IM/IV PRN (11:30)
[2019-04-18] MEDS ORDERED: HYDROCODONE/APAP 7.5MG-325MG 1 EA TAB PO PRN (11:30)
[2019-04-18] MEDS ORDERED: PROMETHAZINE HCL (IM) 25 MG/ML VIAL INJ PRN (11:30)
[2019-04-18] MEDS ORDERED: HYDROCODONE/APAP 5MG-325MG TAB PO PRN (11:30)
[2019-04-18] MEDS ORDERED: ONDANSETRON HCL INJ 2MG/ML 2ML 2 MG/ML VIAL IV PRN (11:30)
[2019-04-18] MEDS ORDERED: ZOLPIDEM TARTRATE 5 MG TAB PO PRN (11:30)
--- NOTE | 2019-04-18 12:43 | Diagnostic Imaging Report ---
EXAMINATION: PELVIS AP 1-2 VIEWS INDICATION: Postoperative COMPARISON: None FINDINGS: AP portable radiograph of the pelvis demonstrates immediate postoperative findings of right total hip replacement. Alignment is anatomic. No unexpected fracture. Postoperative subcutaneous emphysema. Surgical skin william in place. Atherosclerotic arterial vascular calcifications. Phleboliths in the pelvis. IMPRESSION: Anatomic alignment status post right total hip replacement. Signed by: Diane Atwood MD on 04/18/2019 12:40 PM
[2019-04-18] MEDS ORDERED: FENTANYL CITRATE/PF 100MCG/2 ML INJ ONE ×2 (13:05→14:55)
[2019-04-18] MEDS ORDERED: PROPOFOL IV EMULSION 10 MG/ML 20 ML VIAL ONE (13:06)
[2019-04-18] MEDS ORDERED: LIDOCAINE HCL 2% LOCAL INJ 5 ML SDV VIAL INJ ONE (13:06)
[2019-04-18] MEDS ORDERED: ONDANSETRON HCL INJ 2MG/ML 2ML 2 MG/ML VIAL ONE (13:06)
--- NOTE | 2019-04-18 13:22 | NUR ---
PT RESTING IN BED COMFORTABLY [id number]. VERY HARD OF HEARING SON IS AT BEDSIDE PT STATES PAIN TO SURGICAL SITE (RIGHT HIP) IS TOLERABLE AT 4.10 RIGHT HIP DRESSING IS DRY AND INTACT ABDUCTOR PILLOW IN PLACE, FOOT PUMPS PRESENT SCHEDULED TYLENOL IV WILL BE GIVEN PT HAS AN IV TO THE RIGHT HAND 20 WITH LR RUNNING SITE IS CLEAN AND DRY WILL CONTINUE TO MONITOR PT CLOSELY SIDE RAILSX2, BED WHEELS LOCKED, CALL LIGHT IS WITHIN EASY REACH INSTRUCTED TO CALL FOR FOR ASSISTANCE IF NEEDED
[2019-04-18 13:31] VITALS: BP 144/65
[2019-04-18 13:51] VITALS: BP 144/65
[2019-04-18] MEDS: SODIUM CHLORIDE 0.9% 1000ML 1,000 ML IV SCH ×2 (13:51→21:26)
[2019-04-18] MEDS: ACETAMINOPHEN 1000 MG/100 ML IV SCH ×2 (13:51→17:46)
[2019-04-18 13:56] VITALS: BP 144/65
--- NOTE | 2019-04-18 14:02 | NUR ---
MD [facility] MANAGEMENT
[2019-04-18] MEDS ORDERED: MIDAZOLAM HCL 2 MG/2 ML VIAL ONE (14:55)
--- NOTE | 2019-04-18 15:42 | NUR ---
PF VOIDED AFTER SURGERY INTO BED BED CHANGED, DIAPER PLACED
--- NOTE | 2019-04-18 16:23 | NUR ---
OK HOME RENEWAL '
[2019-04-18 16:41] VITALS: BP 162/71
[2019-04-18] MEDS ORDERED: OLMESARTAN MEDOXOMIL 5 MG TABLET PO SCH (17:00)
[2019-04-18] MEDS ORDERED: TRAMADOL HCL 50 MG TAB PO PRN (17:00)
[2019-04-18] MEDS: ASPIRIN 325 MG TAB PO SCH (17:03)
[2019-04-18] MEDS: CELECOXIB 200 MG CAP PO SCH (17:03)
[2019-04-18] MEDS: GEMFIBROZIL 600 MG TAB PO SCH (17:03)
[2019-04-18] MEDS: CEFAZOLIN SOD 1 GM/NS 50ML 50 ML IV SCH (17:04)
--- NOTE | 2019-04-18 19:00 | Operative Report ---
DATE OF PROCEDURE: 04/18/2019 SURGEON: Brian Chow MD MATHEMATICS TECHNICIAN: Chase Kinney PA-C PREOPERATIVE DIAGNOSIS: Osteoarthritis right hip. POSTOPERATIVE DIAGNOSIS: Osteoarthritis right hip. PROCEDURE: Right total hip arthroplasty. INDICATIONS: The patient is an 83-year-old lady, who has end-stage arthritis of her right hip. She has failed conservative management. She would like to proceed with a right total hip replacement. The risks and benefits have been thoroughly discussed. She states she understands and wishes to proceed. PROCEDURE IN DETAIL: The patient was brought to the operating room and placed under general anesthetic. She received an additional spinal anesthetic, prophylactic antibiotics and tranexamic acid prior to the surgery. She was positioned in the left lateral decubitus position. Her right hip was prepped and draped in a sterile manner. A preoperative time-out was performed. A limited incision posterior approach was made to the right hip. Hemostasis was obtained with electrocautery. Care was taken to avoid injury to the sciatic nerve. A self-retaining Charnley retractor was placed. The posterior capsule was carefully exposed. Additional hemostasis was accomplished with electrocautery. The posterior capsule and short external rotators were released. The hip was dislocated. An oscillating saw was used to resect the femoral head. Complete loss of articular cartilage was noted. Acetabular retractors were carefully placed. The labral remnant was excised with a long-handled knife. The floor of the acetabulum was established with a 44 mm reamer. The socket was then sequentially reamed up to 53 mm. Bleeding hemispherical cancellous bone was accomplished. The hip was thoroughly irrigated several times with a shower tip pulsatile lavage. Several small subchondral cysts were debrided with a curved curette and packed with autologous bone graft. A Matteo Biomet 54 mm outer diameter OsseoTi shell was then impacted into place. Fixation was good. Fixation was augmented with a 20 mm screw placed into the ilium. A highly cross-linked polyethylene liner with no posterior elevation and a 36 mm inner diameter was then seated. Care was taken to make sure that there was no evidence of soft tissue interposition. The socket was packed with a moistly soaked lap sponge and attention was directed towards the proximal femur. A box cutting osteotome was used to establish entry to the femoral canal. The taper lock broaches were impacted. A #15 stem was required for good canal fill and rotational stability. A trial reduction was performed. A standard 36 mm head was felt to provide appropriate orthodoxy of limb length and excellent stability to a full arc of motion. The trial implants were removed. A 100 mL premixed pericapsular GABINO injection was placed into the surrounding soft tissue. The implants were seated. The ceramic head and a standard trunnion was seated onto the stem. A final reduction was performed. The posterior capsule was well preserved and was repaired with interrupted #2 Ethibond. 500 mg of vancomycin powder were placed in the posterior aspect of the deep wound. The gluteal fascia was closed with interrupted #2 Ethibond. The skin was closed with subcuticular Vicryl and william. A sterile Aquacel bandage was applied. She was returned to her supine position. She was extubated and transported to the recovery room in stable condition. Estimated blood loss was 100 mL. All needle and sponge counts were correct. Brian Chow MD DR/CITLALI /[id number]
--- NOTE | 2019-04-18 20:30 | NUR ---
Resting in the bed.assessment done.no resp.distress.dressing to right hip is dry.iv to right hand is patent.abduction pillow is in place.bed locked and in lowest position.phone and call light within reach.family member at bed side.instructed to call for assistance as needed.
[2019-04-18 20:31] VITALS: BP 147/68
[2019-04-18] MEDS: TAMSULOSIN HCL 0.4 MG CAP PO SCH (20:33)
[2019-04-18] MEDS: SERTRALINE HCL 100 MG TAB PO SCH (20:33)
[2019-04-18 20:37] VITALS: BP 147/68
[2019-04-19] VITALS (8 sets, daily range): BP systolic 113–161; BP diastolic 55–69
[2019-04-19] MEDS: ACETAMINOPHEN 1000 MG/100 ML IV SCH ×2 (00:09→05:55)
[2019-04-19] MEDS: CEFAZOLIN SOD 1 GM/NS 50ML 50 ML IV SCH ×2 (01:45→08:47)
[2019-04-19] MEDS: LEVOTHYROXINE SODIUM 88 MCG TAB PO SCH (05:15)
[2019-04-19 05:37] LABS: HEMATOCRIT 32.5 % (34.2-44.1); HEMOGLOBIN 10.4 g/dL (12.0-16.0)
--- NOTE | 2019-04-19 07:00 | NUR ---
BED SIDE SHIFT REPORT GIVEN TO THE ONCOMING RN.STABLE CONDITION.
--- NOTE | 2019-04-19 07:00 | NUR ---
bedside shift report received pt in stable denies pain at this time, r hand 20g no ss of infiltration noted, no other co voiced call light in reach will continue to monitor
[2019-04-19] MEDS: OCUVITE PRESERVISION TABLET PO SCH (08:47)
[2019-04-19] MEDS: IMIPRAMINE HCL 50 MG TAB PO SCH (08:47)
[2019-04-19] MEDS: GEMFIBROZIL 600 MG TAB PO SCH ×2 (08:47→17:40)
[2019-04-19] MEDS: LACTOBACILLUS ACIDOPHILUS CAPSULE PO SCH (08:47)
[2019-04-19] MEDS: CELECOXIB 200 MG CAP PO SCH ×2 (08:47→17:40)
[2019-04-19] MEDS: ASPIRIN 325 MG TAB PO SCH ×2 (08:47→17:40)
[2019-04-19] MEDS: PANTOPRAZOLE SOD 40 MG TABEC PO SCH (08:47)
[2019-04-19] MEDS: TAMSULOSIN HCL 0.4 MG CAP PO SCH ×2 (08:47→21:17)
[2019-04-19] MEDS: METOPROLOL SUCCINATE 50 MG TAB XL PO SCH (08:47)
[2019-04-19] MEDS: OLMESARTAN 20 MG TAB PO SCH (08:47)
--- NOTE | 2019-04-19 08:58 | Consultation ---
DATE OF CONSULTATION: REASON FOR CONSULTATION: Postop medical management. HISTORY OF PRESENT ILLNESS: The patient is an 83-year-old lady, status post right hip arthroplasty. She is doing well postoperatively with minimal pain in the right hip. Denies any fever, chills, nausea, vomiting, headache, shortness of breath, fever, or chills. PAST MEDICAL HISTORY: Significant for hypothyroidism, hyperlipidemia, and hypertension. MEDICATIONS: See MAR. ALLERGIES: SULFA. SOCIAL HISTORY: Nonsmoker. Nondrinker. FAMILY HISTORY: Hypertension. PHYSICAL EXAMINATION: VITAL SIGNS: Temperature is 97.1, pulse 56, blood pressure 113/55, sats 91% on room air. GENERAL: She is in no apparent distress, lying in bed. NECK: Supple. CARDIOVASCULAR: Regular rate and rhythm. LUNGS: Decreased breath sounds bilaterally. ABDOMEN: Good bowel sounds. Soft, nontender. EXTREMITIES: No clubbing or cyanosis. NEUROLOGIC: Nonfocal. ASSESSMENT AND PLAN: 1. Right hip pain. Continue postoperative care and physical therapy. 2. Anemia. Check CBC. 3. Hypothyroidism. Continue home medication. 4. Hypertension. Continue with home medication. 5. Hyperlipidemia. Continue with her home medication. Please see hospital chart for full details. MD KEYANNA Alvarenga/CITLALI /[id number]
--- NOTE | 2019-04-19 09:00 | NUR ---
pt attempted to ambulate with pt, pt become sweating, dizzy and complained of nausea, pt placed back to bed, pt refused nausea meds, states it has subsided, shanel lugo notified
[2019-04-19] MEDS ORDERED: ONDANSETRON HCL 4 MG ORAL DISINTEGRATING TAB PO PRN (10:15)
--- NOTE | 2019-04-19 10:48 | NUR ---
pt ambulated 30feet, co of nausea medicated with prn meds
--- NOTE | 2019-04-19 10:56 | NUR ---
DR LOPEZ OFFICE PREARRANGED FOLLOWING DISCHARGE PLAN OF: HOME WITH HOME HEALTH AND THERAPY HOME HEALTH WITH [facility] [phone] CONFIRMED WITH GELA SHE HAS ALL EQUIPMENT EXCEPT THE ROLLING WALKER WITH WHEELS THAT I PROVIDED, OBTAINED SIGNATURES AND PUT PAPERWORK IN PACU FOR PROCESSING. NOTIFIED [facility]AP[facility] [employer] [facility] SHE DID NOT NEED ANY DME.
[2019-04-19] MEDS ORDERED: ACETAMINOPHEN 1000 MG/100 ML IV PRN (11:30)
--- NOTE | 2019-04-19 13:30 | NUR ---
parish ugarte, with Dr. Chow, at bedside, informed of pt ambulating only 30ft , instructed pt and son we will reevaluate in am
[2019-04-19] MEDS: SERTRALINE HCL 100 MG TAB PO SCH (21:17)
[2019-04-20 00:09] VITALS: BP 134/61
[2019-04-20 05:21] LABS: HEMATOCRIT 30.7 % (34.2-44.1); HEMOGLOBIN 9.8 g/dL (12.0-16.0)
[2019-04-20 05:22] VITALS: BP 109/54
[2019-04-20] MEDS: LEVOTHYROXINE SODIUM 88 MCG TAB PO SCH (05:55)
--- NOTE | 2019-04-20 07:35 | NUR ---
BEDSIDE REPORT GIVEN TO ANNABEL DE LA CRUZ.
[2019-04-20 08:33] VITALS: BP 130/60
[2019-04-20 09:07] VITALS: BP 163/70
[2019-04-20] MEDS: OCUVITE PRESERVISION TABLET PO SCH (09:07)
[2019-04-20] MEDS: ASPIRIN 325 MG TAB PO SCH (09:07)
[2019-04-20] MEDS: OLMESARTAN 20 MG TAB PO SCH (09:07)
[2019-04-20] MEDS: METOPROLOL SUCCINATE 50 MG TAB XL PO SCH (09:07)
[2019-04-20] MEDS: CELECOXIB 200 MG CAP PO SCH (09:07)
[2019-04-20] MEDS: IMIPRAMINE HCL 50 MG TAB PO SCH (09:07)
[2019-04-20] MEDS: PANTOPRAZOLE SOD 40 MG TABEC PO SCH (09:07)
[2019-04-20] MEDS: GEMFIBROZIL 600 MG TAB PO SCH (09:07)
[2019-04-20] MEDS: LACTOBACILLUS ACIDOPHILUS CAPSULE PO SCH (09:07)
[2019-04-20] MEDS: TAMSULOSIN HCL 0.4 MG CAP PO SCH (09:07)
[2019-04-20 12:57] VITALS: BP 133/60
[2019-04-24] MEDS ORDERED: MILK OF MA400 MG/5 M PO (07:31)
[2019-04-24] MEDS ORDERED: SENOKOT8.6 MG PO (07:31)
[2019-04-24] MEDS ORDERED: COLACE100 MG PO (07:31)
== END 2019-04-20 13:40 | disposition home health service (06) | DRG 470 ==
LOC: OR 07:43 → PACU V 11:29 → MED/SURG 13:02
PROVIDERS: ADMIT Specialist; ATTEND Specialist
PROC: 0SR906A Replacement of Right Hip Joint with Oxidized Zirconium on Polyethylene Synthetic Substitute, Uncemented, Open Approach (ICD-10-PCS; principal; 2019-04-18 10:00)
DX: M16.11 Unilateral primary osteoarthritis, right hip (principal); M17.11 Unilateral primary osteoarthritis, right knee; E03.9 Hypothyroidism, unspecified; D64.9 Anemia, unspecified; E78.5 Hyperlipidemia, unspecified; I10 Essential (primary) hypertension
CPT/HCPCS: 36415; 71046; 72170; 85014; 85018; 85025; 86850; 86900; 86920; 93005; 97139; J0171; J0690; J1100; J1885; J2001; J2250; J2405; J2795; J3010; J3370; J7030; J7040; Q0162

== ENCOUNTER 2019-04-23 13:21 | Observation (INO) | payer MEDICARE ==
[~2019-04-23] VITALS: Ht 170.2 cm; Wt 78.5 kg
[~2019-04-23 13:21] MED LIST changes: -BACITRACIN 50,000 UNIT VIAL ONE; -ROPIVACAINE 246.25 MG, EPINEPHRINE HCL 1:1000 1ML 0.5 MG, CLONIDINE HCL 0.08 MG, KETORO... INJ ONE; -SODIUM CHLORIDE 0.9% 500ML 500 ML ONE; -TRANEXAMIC ACID 1,000 MG/10 ML ML ONE; -VANCOMYCIN HCL 1,000 MG ONE
[2019-04-23] MEDS ORDERED: NORCO 5-325 TA1 EACH PO (14:21)
[2019-04-23] MEDS ORDERED: NAPROXEN250 MG PO (14:22)
[2019-04-23] MEDS ORDERED: SODIUM CHLORIDE 0.9% 500ML 500 ML IV ONE (14:30)
[2019-04-23 14:36] LABS: BASOPHILS # (AUTO) 0.1 (0.0-0.1); BASOPHILS % 0.6 % (0.0-1.0); EOSINOPHILS # (AUTO) 0.1 (0.0-0.4); EOSINOPHILS % 1.5 % (0.0-6.0); HEMATOCRIT 34.3 % (34.2-44.1); HEMOGLOBIN 11.3 g/dL (12.0-16.0); LYMPHOCYTES # (AUTO) 1.3 (1.0-3.2); LYMPHOCYTES % 14.2 % (18.0-39.1); MEAN CORPUSCULAR HEMOGLOBIN 29.4 pg (28-32); MEAN CORPUSCULAR HGB CONC 32.9 g/dL (31-35); MEAN CORPUSCULAR VOLUME 89.3 fL (81-99); MONOCYTES # (AUTO) 0.7 (0.2-0.8); NEUTROPHILS # (AUTO) 7.2 (2.1-6.9); NEUTROPHILS % 75.9 % (38.7-80.0); PLATELET COUNT 328 x10e3/uL (140-360); RED BLOOD COUNT 3.84 x10e6/uL (3.6-5.1); RED CELL DISTRIBUTION WIDTH 13.9 % (11.7-14.4)
[2019-04-23 14:40] LABS: INR 1.02; PROTHROMBIN TIME 13.9 seconds (11.9-14.5)
[2019-04-23 14:41] LABS: PARTIAL THROMBOPLASTIN TIME 46.8 seconds (23.8-35.5)
[2019-04-23 14:48] LABS: ALANINE AMINOTRANSFERASE 11 IU/L (0-55); ALBUMIN 3.1 g/dL (3.5-5.0); ALBUMIN/GLOBULIN RATIO 0.8 (0.8-2.0); ALKALINE PHOSPHATASE 101 IU/L (40-150); ANION GAP 15.3 mmol/L (8-16); BLOOD UREA NITROGEN 18 mg/dL (7-26); BUN/CREATININE RATIO 24 (6-25); CALCIUM 9.7 mg/dL (8.4-10.2); CARBON DIOXIDE 26 mmol/L (22-29); CHLORIDE 99 mmol/L (98-107); CREATINE KINASE 89 IU/L (29-168); CREATININE, SERUM 0.75 mg/dL (0.57-1.11); EST GLOMERULAR FILTRATION RATE > 60 ML/MIN (60-); GLUCOSE 120 mg/dL (74-118); MAGNESIUM 2.1 MG/DL (1.3-2.1); POTASSIUM 4.3 mmol/L (3.5-5.1); SODIUM 136 mmol/L (136-145)
--- NOTE | 2019-04-23 15:17 | NUR ---
[facility] [employer]ILDER AT BEDSIDE
[2019-04-23 15:19] LABS: BILIRUBIN,URINE NEGATIVE (NEGATIVE); CLARITY,URINE CLEAR (CLEAR); COLOR,URINE YELLOW (YELLOW); KETONES,URINE NEGATIVE (NEGATIVE); LEUKOCYTE ESTERASE ,URINE NEGATIVE (NEGATIVE); NITRITE,URINE NEGATIVE (NEGATIVE); PROTEIN,URINE DIPSTICK NEGATIVE (NEGATIVE); URINE UROBILINOGEN 0.2 mg/dL (0.2 - 1)
[2019-04-23 15:43] LABS: BACTERIA,URINE FEW /HPF; EPITHELIAL CELLS,URINE MODERATE /LPF; WBC,URINE (MAN) 0-5 /HPF (0-5)
[2019-04-23] MEDS ORDERED: SODIUM CHLORIDE 0.9% 50ML 50 ML ONE (16:31)
[2019-04-23] MEDS ORDERED: IOPAMIDOL 370 MG/ML 200 ML INFUS..BTL INJ ONE (16:31)
--- NOTE | 2019-04-23 16:41 | NUR ---
waiting on CT results
--- NOTE | 2019-04-23 16:45 | Diagnostic Imaging Report ---
A single frontal view of the chest. HISTORY: Dizzy COMPARISON: None available. DISCUSSION: Portable technique, limits sensitivity of the exam. Soft tissue attenuation partially limits sensitivity of the exam. Overlying artifacts. Tubes/Lines: None Lungs and pleura: Low lung volumes result in bibasilar vascular crowding, accentuation of the pulmonary interstitial markings, central pulmonary vasculature, and the cardiac silhouette. Allowing for these limitations, the findings are as follows: No evidence of a consolidative pneumonia or pulmonary alveolar edema. No definite pleural effusion or pneumothorax is identified. Heart and mediastinum: The cardiomediastinal silhouette appear(s) unremarkable. Bones and soft tissues: Metallic clips project at the left axilla. IMPRESSION: No acute radiographic abnormality. Signed by: Dr. Gomez Wright D.O., M.M.M. on 04/23/2019 4:41 PM
--- NOTE | 2019-04-23 16:47 | Diagnostic Imaging Report ---
History:Dizziness Comparison studies:None Technique: Axial images were obtained from the skull base to the vertex. Coronal and sagittal images reconstructed from the axial data. Intravenous contrast: None Dose modulation, iterative reconstruction, and/or weight based adjustment of the mA/kV was utilized to reduce the radiation dose to as low as reasonably achievable. Findings: Scalp/skull: No abnormalities. Extra-axial spaces: No masses. No fluid collections. Brain sulci: Age-appropriate. Ventricles: Age-appropriate.. No hydrocephalus. Parenchyma: Few hypodensities in the supratentorial white matter are small vessel ischemic changes. No masses, hemorrhage, acute or chronic cortical vascular insults. Sellar/suprasellar region: No abnormalities. Craniocervical junction: Patent foramen magnum. No Chiari one malformation. Incidental findings: Atherosclerotic calcifications in the carotid siphons . Impression: No acute abnormalities. Chronic findings: 1. Mild supratentorial white matter small vessel ischemic changes. Signed by: DR Salas Ward M.D. on 04/23/2019 4:44 PM
--- NOTE | 2019-04-23 16:58 | Diagnostic Imaging Report ---
EXAM: CT of the abdomen and pelvis WITH contrast HISTORY: Abdominal pain, dizziness, lower abdominal pain, no bowel movement in 9 days, past surgical history includes cholecystectomy, hysterectomy and hemorrhoidectomy COMPARISON: CT of the abdomen and pelvis March 15, 2008. TECHNIQUE: The abdomen and pelvis were scanned utilizing a multidetector helical scanner. Coronal and sagittal reformats are provided. PROTOCOL: Routine IV CONTRAST: 100 cc of Isovue-370. ORAL CONTRAST: None, which limits sensitivity and specificity of the exam. RADIATION DOSE: Total DLP: 2456.58 mGy*cm for all the current exams. Estimated effective dose: (DLP x 0.015 x size factor) Dose modulation, iterative reconstruction, and/or weight based adjustment of the mA/kV was utilized to reduce the radiation dose to as low as reasonably achievable. COMPLICATIONS: None FINDINGS: LOWER THORAX: No consolidations LIVER: No masses BILIARY: Status post cholecystectomy.Mild prominence of the central intrahepatic and biliary duct, likely secondary to reservoir effect. SPLEEN: No masses PANCREAS: No masses. Diffuse parenchymal atrophy. ADRENALS: No nodules KIDNEYS: Symmetric perfusion. Stable peripherally calcified 1.2 cm cyst inferior pole of the right kidney. No hydronephrosis. Stable 2.6 cm lesion in the inferior pole of the left kidney that does not measure simple water density. GI TRACT: * The stomach is decompressed, which limits evaluation. Even allowing for the amount of decompression, the wall appears nonspecifically thickened. * Marked sigmoid colon diverticulosis, but no fat stranding to suggests active inflammation. * The appendix is not again identified, but no inflammatory changes about the cecum. * Slightly increased moderate to large colonic fecal burden. VESSELS: Scattered atherosclerotic vascular calcifications, including the coronary arteries. PERITONEUM/RETROPERITONEUM: No free air or fluid LYMPH NODES: No lymphadenopathy REPRODUCTIVE ORGANS: The uterus is not visualized. No adnexal masses. BLADDER: Unremarkable SOFT TISSUES: Unremarkable BONES: Beam Weeks artifact related to right hip arthroplasty, which partially limits regional evaluation. A few nonaggressive small scar densities in the proximal left femur, most likely small bone islands. IMPRESSION: 1. Increased moderate colonic fecal burden, which can be seen in setting of constipation. 2. Diffusely nonspecific thickened appearance of the gastric wall, correlate for gastritis. 3. Colonic diverticulosis without CT findings of acute diverticulitis. 4. Stable 3 cm lesion in the inferior pole of the left kidney that does not measure simple cystic fluid, remains incompletely characterized. 5. Coronary atherosclerosis. Signed by: Dr. Gomez Wright D.O., M.M.M. on 04/23/2019 4:54 PM
[2019-04-23] MEDS ORDERED: ONDANSETRON HCL INJ 2MG/ML 2ML 2 MG/ML VIAL IV PRN (17:00)
--- NOTE | 2019-04-23 17:03 | NUR ---
albaro here seeing pt
--- NOTE | 2019-04-23 17:23 | NUR ---
PRIMARY CARE PHYSICIAN: Dr. Fxo. PIPELINE TECHNICIAN: Dr. House. CHIEF COMPLAINT: abdominal pain and constipation HISTORY OF PRESENT ILLNESS: This is an 83-year-old woman with abdomianl pain, found to have constipation after recent right hip repair earlier this week. PAST MEDICAL HISTORY: Hypertension, breast cancer and lung cancer, status post right lumpectomy and right upper lobe lung resection in 2002, status post radiation therapy but no chemo, hemorrhoids, hypothyroidism, GERD, BPPV/benign paroxysmal positional vertigo, chronic dizziness with heart catheterization without any significant coronary artery disease and left ventricular ejection fraction of 50% in January of 2011, Internal hemorrhoids s/p hemorrhoidectomy, E.cli UTi, KATHERINE, GIB due to hemorrhoids, BPPV, sigmoid colon diverticulosis, epistaxis PAST SURGICAL HISTORY: Appendectomy, cholecystectomy, hysterectomy, right-sided lumpectomy and right upper lobe of the lung resection in 2002. ALLERGIES: PER THE ELECTRONIC MEDICAL RECORDS. FAMILY HISTORY/SOCIAL HISTORY: Patient is a . She has 2 children. No alcohol or illicits. She quit cigarettes 40 years ago. MEDICATIONS: Per the electronic medical records. Medications reviewed. REVIEW OF SYSTEMS: Denies any chest pain, shortness of breath, fever, chills, sweats, nausea, vomiting, diarrhea, back pain. VITAL SIGNS: no f/c/s/N/V/D/WEI/cp/sob/back pain/vision changes/skin rash PHYSICAL EXAMINATION GENERAL APPEARANCE: A tired-appearing woman resting in bed. HEENT: Anicteric. Pupils responsive to light. No oral lesions. CARDIOVASCULAR: Normal S1/S2. LUNGS: Moderate breath sounds. ABDOMEN: Soft, nontender, nondistended. EXTREMITIES: right hip surgical site clear and dry; no signs of infection NEUROLOGICALLY: Alert and oriented x3. Moving all extremities. SKIN: Dry. PSYCHIATRIC: Normal mood. LABS: Reviewed. ASSESSMENT: This is an 83-year-old woman. Constipation Physical deconditioning Dehydration Right hip OA with recent repair Right hip pain PLAN IVF Bowel reg F/u U/S leg PT consult Lovenox; D/C planning Efe Lanza MD, PhD
[2019-04-23] MEDS ORDERED: HYDROCODONE/APAP 5MG-325MG TAB PO PRN (17:30)
[2019-04-23] MEDS ORDERED: MAGNESIUM HYDROXIDE 30 ML UDC PO PRN (17:30)
--- NOTE | 2019-04-23 17:37 | NUR ---
DR. Tai SMITH AT BEDSIDE EVALUATING PATIENT
[2019-04-23] MEDS ORDERED: SOD PHOSPHATE/SOD BIPHOSPHATE ENEMA 132 ML BTL PR NR (18:00)
--- NOTE | 2019-04-23 18:01 | NUR ---
RCD PT FROM ER BY BED PT IS ALERT AND ORIENTED VITALS CHECKED IV NS CONNECTED BED LOW AND LOCKED PPT RESTING ON BED FAMILY AT BED SIDE
[2019-04-23 18:22] VITALS: BP 155/66
[2019-04-23] MEDS: SODIUM CHLORIDE 0.9% 1000ML 1,000 ML IV SCH (18:30)
[2019-04-23 19:10] LABS: CREATINE KINASE 79 IU/L (29-168)
--- NOTE | 2019-04-23 19:14 | NUR ---
RECEIVED PT RESTING IN BED WITH NO S/S OF DISTRESS.RESPIRATIONS EVEN/NON LABORED.PT HAS IV TO RIGHT FA 20G WITH NS RUNNING AT 100ML/HR.PT DENIES ANY NEEDS AT THIS TIME.BED IN LOWEST/LOCKED POSITION.CALL LIGHT WITHIN EASY REACH.
--- NOTE | 2019-04-23 19:15 | NUR ---
PT RESTING ON BED BED SIDE REPORT GIVEN TO ONCOMING NURSE
--- NOTE | 2019-04-23 19:40 | NUR ---
FLEET ENEMA GIVEN AT THIS TIME ORDERED.PT TOLERATED WELL.WILL CONTINUE TO MONITOR.
[2019-04-23] MEDS ORDERED: SERTRALINE HCL 100 MG TAB PO SCH (21:00)
[2019-04-23] MEDS ORDERED: OLMESARTAN 20 MG TAB PO SCH (21:00)
[2019-04-23 21:22] VITALS: BP 139/60
[2019-04-23 21:29] VITALS: BP 139/60
[2019-04-23] MEDS: DOCUSATE SODIUM 100 MG CAP PO SCH (21:50)
[2019-04-23] MEDS: SENNOSIDES 8.6 MG TAB PO SCH (21:50)
[2019-04-24 01:13] VITALS: BP 125/54
[2019-04-24] MEDS: SODIUM CHLORIDE 0.9% 1000ML 1,000 ML IV SCH (03:00)
[2019-04-24 03:02] LABS: CREATINE KINASE 58 IU/L (29-168)
[2019-04-24 05:28] VITALS: BP 129/55
[2019-04-24] MEDS ORDERED: LEVOTHYROXINE SODIUM 88 MCG TAB PO SCH (06:00)
[2019-04-24 06:01] LABS: BASOPHILS # (AUTO) 0.1 (0.0-0.1); BASOPHILS % 0.8 % (0.0-1.0); EOSINOPHILS # (AUTO) 0.2 (0.0-0.4); EOSINOPHILS % 2.9 % (0.0-6.0); HEMATOCRIT 29.9 % (34.2-44.1); HEMOGLOBIN 9.6 g/dL (12.0-16.0); LYMPHOCYTES # (AUTO) 1.7 (1.0-3.2); LYMPHOCYTES % 29.1 % (18.0-39.1); MEAN CORPUSCULAR HEMOGLOBIN 28.9 pg (28-32); MEAN CORPUSCULAR HGB CONC 32.1 g/dL (31-35); MEAN CORPUSCULAR VOLUME 90.1 fL (81-99); MONOCYTES # (AUTO) 0.5 (0.2-0.8); MONOCYTES % 8.5 % (4.4-11.3); NEUTROPHILS # (AUTO) 3.4 (2.1-6.9); NEUTROPHILS % 58.2 % (38.7-80.0); PLATELET COUNT 263 x10e3/uL (140-360); RED BLOOD COUNT 3.32 x10e6/uL (3.6-5.1); RED CELL DISTRIBUTION WIDTH 13.8 % (11.7-14.4)
[2019-04-24 06:38] LABS: ALANINE AMINOTRANSFERASE 9 IU/L (0-55); ALBUMIN 2.6 g/dL (3.5-5.0); ALKALINE PHOSPHATASE 79 IU/L (40-150); ANION GAP 11.9 mmol/L (8-16); BLOOD UREA NITROGEN 13 mg/dL (7-26); BUN/CREATININE RATIO 18 (6-25); CALCIUM 8.6 mg/dL (8.4-10.2); CARBON DIOXIDE 28 mmol/L (22-29); CHLORIDE 104 mmol/L (98-107); CREATININE, SERUM 0.73 mg/dL (0.57-1.11); EST GLOMERULAR FILTRATION RATE > 60 ML/MIN (60-); GLUCOSE 110 mg/dL (74-118); POTASSIUM 3.9 mmol/L (3.5-5.1); SODIUM 140 mmol/L (136-145)
--- NOTE | 2019-04-24 06:40 | NUR ---
PT RESTING IN BED WITH NO S/S OF DISTRESS.IVF RUNNING AT 100ML/HR.PT HAD 3 BOWEL MOVEMENTS THIS SHIFT.BED IN LOWEST/LOCKED.BED ALARM ON.CALL LIGHT WITHIN EASY REACH.
[2019-04-24 06:50] LABS: CREATINE KINASE 52 IU/L (29-168)
--- NOTE | 2019-04-24 07:20 | NUR ---
REPORT GIVEN TO ONCOMING NURSE.WALKING ROUNDS MADE.PT RESTING IN BED WITH NO S/S OF DISTRESS.
[2019-04-24] MEDS ORDERED: COLACE100 MG PO (07:31)
[2019-04-24] MEDS ORDERED: SENOKOT8.6 MG PO (07:31)
[2019-04-24] MEDS ORDERED: MILK OF MA400 MG/5 M PO (07:31)
--- NOTE | 2019-04-24 08:00 | NUR ---
D/C summary Principal Dx: Severe constipation Physical deconditioning Dehydration Right hip OA with recent repair Right hip pain PLAN IVF Bowel reg F/u U/S leg PT consult Lovenox; D/C planning d/c home with HH/PT f/u pcp 1 week stable d/c>35mins Efe Lanza MD, PhD
[2019-04-24 08:48] VITALS: BP 158/68
[2019-04-24] MEDS ORDERED: IMIPRAMINE HCL 50 MG TAB PO SCH (09:00)
[2019-04-24] MEDS ORDERED: OLMESARTAN 20 MG TAB PO SCH (09:00)
[2019-04-24] MEDS ORDERED: METOPROLOL SUCCINATE 50 MG TAB XL PO SCH (09:00)
[2019-04-24] MEDS ORDERED: GEMFIBROZIL 600 MG TAB PO SCH (09:00)
[2019-04-24] MEDS: SENNOSIDES 8.6 MG TAB PO SCH (09:00)
[2019-04-24] MEDS: DOCUSATE SODIUM 100 MG CAP PO SCH (09:00)
[2019-04-24] MEDS ORDERED: PANTOPRAZOLE SOD 40 MG TABEC PO SCH (09:00)
--- NOTE | 2019-04-24 10:42 | NUR ---
HOME HEALTH DISCHARGE NOTE PATIENT ADDRESS WHERE SERVICE WILL BE RECEIVED: [address] [address] PATIENT CONTACT NUMBER: [phone] NAME OF HOME HEALTH COMPANY: [facility] TELEPHONE/FAX NUMBER OF COMPANY: [phone] / [phone] ADDRESS OF [place]: [phone] [place] [address] SERVICES TO RECEIVE: SN, PT/OT ANTICIPATED DATE SERVICES WILL BEGIN: April 25, 2019 MUKUL called and spoke with Danielle at [facility] and informed her of observation status and discharge for today. Please call the company above if you have not received a call to schedule a home visit within 24 hours of discharge.
[2019-04-24] MEDS ORDERED: ONDANSETRON HCL 4 MG ORAL DISINTEGRATING TAB PO PRN (11:00)
--- NOTE | 2019-04-24 11:24 | NUR ---
Discharge instructions given to the patient and her son. They verbalized understanding. IV to the right FA was removed with tip intact,
[2019-04-24] MEDS ORDERED: TAMSULOSIN HCL 0.4 MG CAP PO SCH (21:00)
== END 2019-04-24 11:49 | disposition home or self-care (01) ==
LOC: ER 13:21 → ERHOLD 17:07 → MED/SURG2 17:59
PROVIDERS: ADMIT Internal Medicine; ATTEND Internal Medicine
DX: E86.0 Dehydration (principal); K59.00 Constipation, unspecified; M16.11 Unilateral primary osteoarthritis, right hip; Z96.641 Presence of right artificial hip joint
CPT/HCPCS: 36415 ×2; 70450; 71045; 74177; 80053 ×2; 81001; 82550 ×2; 82553 ×2; 83735; 83880; 84484 ×2; 85025 ×2; 85610; 85730; 87086; 87186; 93005; 93971; 99285; G0378 ×2; J7030 ×2; J7040; Q9967; S0164

== ENCOUNTER 2021-01-13 16:32 | Emergency (ER) | payer MEDICARE ==
[~2021-01-13] VITALS: Ht 167.6 cm; Wt 90.7 kg
[~2021-01-13 16:32] MED LIST changes: +ASPIRIN EC81 MG PO; +COLACE100 MG PO; +MILK OF MA400 MG/5 M PO; +NAPROXEN250 MG PO; +SENOKOT8.6 MG PO; +ZOFRAN4 MG PO
[2021-01-13] MEDS ORDERED: OS-CAL 500+D T1 EACH PO (17:11)
[2021-01-13] MEDS ORDERED: GLUCOSAMINE1000 MG (17:11)
[2021-01-13] MEDS ORDERED: CANDICIDAL CAP1 EACH (17:11)
[2021-01-13] MEDS ORDERED: OMEPRAZOLE40 MG PO (17:11)
[2021-01-13] MEDS ORDERED: ACETAMINOPHEN 325 MG TAB PO ONE (17:15)
[2021-01-13] MEDS ORDERED: NITROGLYCERIN 2% OINT 1 GM PKT TOP ONE (17:15)
[2021-01-13] MEDS ORDERED: HYDRALAZINE HCL 20 MG/ML VIAL IV ONE (17:15)
[2021-01-13] MEDS ORDERED: NITROGLYCERIN 2% OINT 1 GM PKT ONE (17:23)
[2021-01-13] MEDS ORDERED: HYDRALAZINE HCL 20 MG/ML VIAL ONE (17:23)
[2021-01-13] MEDS ORDERED: ACETAMINOPHEN 325 MG TAB ONE (17:23)
[2021-01-13] MEDS ORDERED: CLONIDINE HCL 0.1 MG TAB PO ONE (18:15)
[2021-01-13 18:28] VITALS: BP 211/87
== END 2021-01-13 18:35 | disposition home or self-care (01) ==
LOC: FSED 17:00
DX: R42 Dizziness and giddiness (principal); I16.0 Hypertensive urgency; R51.9 Headache, unspecified; R94.31 Abnormal electrocardiogram [ECG] [EKG]; I10 Essential (primary) hypertension; E78.5 Hyperlipidemia, unspecified; Z85.3 Personal history of malignant neoplasm of breast; Z85.118 Personal history of other malignant neoplasm of bronchus and lung
CPT/HCPCS: 70450; 71045; 80053; 81003; 82553; 83880; 84484; 85025; 96374; 99284; J0360

== ENCOUNTER 2021-01-15 09:05 | Observation (INO) | payer MEDICARE ==
[~2021-01-15] VITALS: Ht 167.6 cm; Wt 79.8 kg
[~2021-01-15 09:05] MED LIST changes: +CANDICIDAL CAP1 EACH; +GLUCOSAMINE1000 MG; +OS-CAL 500+D T1 EACH PO
[2021-01-15] MEDS ORDERED: SODIUM CHLORIDE 0.9% 1000ML 1,000 ML IV STA (09:10)
[2021-01-15] MEDS ORDERED: SODIUM CHLORIDE 0.9% 1000ML 1,000 ML ONE (09:29)
[2021-01-15] MEDS ORDERED: HYDRALAZINE HCL 20 MG/ML VIAL IV PRN (11:00)
[2021-01-15] MEDS ORDERED: HYDRALAZINE HCL 20 MG/ML VIAL ONE (12:15)
[2021-01-15] MEDS ORDERED: ACETAMINOPHEN 325 MG TAB PO PRN (13:45)
[2021-01-15] MEDS ORDERED: ZOLPIDEM TARTRATE 5 MG TAB PO PRN (13:45)
[2021-01-15] MEDS ORDERED: ONDANSETRON HCL INJ 2MG/ML 2ML 2 MG/ML VIAL IV PRN (13:45)
[2021-01-15 14:55] VITALS: BP 150/83
[2021-01-15 15:43] VITALS: BP 150/83
[2021-01-15] MEDS: MECLIZINE HCL 12.5 MG TAB PO SCH ×2 (15:43→21:41)
[2021-01-15] MEDS: PANTOPRAZOLE SOD 40 MG TABEC PO SCH (15:43)
[2021-01-15 15:44] VITALS: BP 150/83
[2021-01-15 15:47] VITALS: BP 150/83
[2021-01-15] MEDS: GEMFIBROZIL 600 MG TAB PO SCH (16:31)
[2021-01-15 18:29] LABS: CREATINE KINASE 41 IU/L (29-168)
[2021-01-15 20:00] VITALS: BP 179/62
[2021-01-15] MEDS: DOCUSATE SODIUM 100 MG CAP PO SCH (20:45)
[2021-01-15] MEDS ORDERED: SERTRALINE HCL 100 MG TAB PO SCH (21:00)
[2021-01-16 04:00] VITALS: BP 153/63
[2021-01-16 05:40] LABS: BASOPHILS # (AUTO) 0.1 (0.0-0.1); BASOPHILS % 0.9 % (0.0-1.0); EOSINOPHILS % 0.5 % (0.0-6.0); HEMATOCRIT 41.6 % (34.2-44.1); HEMOGLOBIN 13.3 g/dL (12.0-16.0); LYMPHOCYTES # (AUTO) 2.5 (1.0-3.2); LYMPHOCYTES % 40.2 % (18.0-39.1); MEAN CORPUSCULAR VOLUME 90.6 fL (81-99); MONOCYTES # (AUTO) 0.6 (0.2-0.8); MONOCYTES % 9.3 % (4.4-11.3); NEUTROPHILS # (AUTO) 3.1 (2.1-6.9); NEUTROPHILS % 48.8 % (38.7-80.0); PLATELET COUNT 280 x10e3/uL (140-360); RED BLOOD COUNT 4.59 x10e6/uL (3.6-5.1); RED CELL DISTRIBUTION WIDTH 13.8 % (11.7-14.4)
[2021-01-16] MEDS ORDERED: LEVOTHYROXINE SODIUM 88 MCG TAB PO SCH (06:00)
[2021-01-16] MEDS: MECLIZINE HCL 12.5 MG TAB PO SCH (06:03)
[2021-01-16] MEDS ORDERED: ONDANSETRON HCL 4 MG ORAL DISINTEGRATING TAB PO PRN (07:00)
[2021-01-16 07:03] LABS: ALBUMIN 3.6 g/dL (3.5-5.0); ALBUMIN/GLOBULIN RATIO 1.3 (0.8-2.0); ANION GAP 14.7 mmol/L (8-16); CALCIUM 8.9 mg/dL (8.4-10.2); POTASSIUM 4.7 mmol/L (3.5-5.1)
[2021-01-16 07:33] LABS: CREATINE KINASE 37 IU/L (29-168)
[2021-01-16 08:11] VITALS: BP 149/77
[2021-01-16 08:14] VITALS: BP 149/77
[2021-01-16] MEDS: PANTOPRAZOLE SOD 40 MG TABEC PO SCH ×2 (08:14→16:30)
[2021-01-16] MEDS: GEMFIBROZIL 600 MG TAB PO SCH ×2 (08:14→16:57)
[2021-01-16] MEDS: DOCUSATE SODIUM 100 MG CAP PO SCH (08:14)
[2021-01-16] MEDS ORDERED: ASPIRIN 81 MG ENTERIC COATED PO SCH (09:00)
[2021-01-16] MEDS ORDERED: OLMESARTAN 20 MG TAB PO SCH (09:00)
[2021-01-16] MEDS ORDERED: IMIPRAMINE HCL 50 MG TAB PO SCH (09:00)
[2021-01-16] MEDS ORDERED: METOPROLOL SUCCINATE 50 MG TAB XL PO SCH (09:00)
[2021-01-16 11:30] VITALS: BP 151/73
[2021-01-16] MEDS ORDERED: MECLIZINE HCL 12.5 MG TAB PO SCH (14:00)
[2021-01-16 14:32] LABS: CREATINE KINASE 30 IU/L (29-168)
[2021-01-16 14:49] VITALS: BP 122/87
[2021-01-16 15:04] LABS: CLARITY,URINE CLEAR (CLEAR); COLOR,URINE YELLOW (YELLOW); KETONES,URINE NEGATIVE (NEGATIVE); LEUKOCYTE ESTERASE ,URINE NEGATIVE (NEGATIVE); NITRITE,URINE NEGATIVE (NEGATIVE); PROTEIN,URINE DIPSTICK NEGATIVE (NEGATIVE); URINE UROBILINOGEN 0.2 mg/dL (0.2 - 1)
[2021-01-16 15:16] LABS: EPITHELIAL CELLS,URINE FEW /LPF
== END 2021-01-16 17:00 | disposition home or self-care (01) ==
LOC: FSED 09:11 → ERHOLD 10:12 → MED/SURG 14:55
PROVIDERS: ADMIT Internal Medicine; ATTEND Internal Medicine
DX: H81.10 Benign paroxysmal vertigo, unspecified ear (principal); R55 Syncope and collapse; I16.0 Hypertensive urgency; K59.00 Constipation, unspecified; I10 Essential (primary) hypertension; E03.9 Hypothyroidism, unspecified; K21.9 Gastro-esophageal reflux disease without esophagitis; Z88.2 Allergy status to sulfonamides
CPT/HCPCS: 36415 ×2; 70450; 80053 ×2; 81001; 81003; 82550 ×2; 82553 ×2; 84484 ×2; 85025 ×2; 85379; 93005; 93306; 97139; 97161; 99284; G0378 ×2; J0360; J7030; J8597 ×2; S0164 ×2

== ENCOUNTER 2022-03-23 20:33 | Emergency (ER) | payer MEDICARE ==
[~2022-03-23] VITALS: Ht 167.6 cm; Wt 79.8 kg
[2022-03-23 21:11] LABS: BASOPHILS % 0.3 % (0.0-1.0); EOSINOPHILS % 0.2 % (0.0-6.0); HEMOGLOBIN 12.2 g/dL (12.0-16.0); LYMPHOCYTES # (AUTO) 0.5 (1.0-3.2); LYMPHOCYTES % 5.1 % (18.0-39.1); MEAN CORPUSCULAR HGB CONC 31.3 g/dL (31-35); MEAN CORPUSCULAR VOLUME 92.6 fL (81-99); MONOCYTES # (AUTO) 0.4 (0.2-0.8); MONOCYTES % 3.5 % (4.4-11.3); NEUTROPHILS # (AUTO) 9.4 (2.1-6.9); NEUTROPHILS % 90.4 % (38.7-80.0); PLATELET COUNT 220 x10e3/uL (140-360); RED BLOOD COUNT 4.21 x10e6/uL (3.6-5.1); RED CELL DISTRIBUTION WIDTH 14.6 % (11.7-14.4)
[2022-03-23] MEDS ORDERED: MECLIZINE HCL 12.5 MG TAB PO ONE (21:15)
[2022-03-23] MEDS ORDERED: MECLIZINE HCL 12.5 MG TAB ONE (21:17)
[2022-03-23 21:19] LABS: ANION GAP 18.2 mmol/L (8-16); CALCIUM 8.8 mg/dL (8.4-10.2); CREATININE, SERUM 1.59 mg/dL (0.57-1.11); POTASSIUM 4.2 mmol/L (3.5-5.1)
[2022-03-23 22:01] LABS: CLARITY,URINE SL CLOUDY (CLEAR); COLOR,URINE YELLOW (YELLOW); KETONES,URINE NEGATIVE (NEGATIVE); LEUKOCYTE ESTERASE ,URINE MODERATE (NEGATIVE); NITRITE,URINE NEGATIVE (NEGATIVE); PROTEIN,URINE DIPSTICK TRACE (NEGATIVE); URINE UROBILINOGEN 1 mg/dL (0.2 - 1)
[2022-03-23 22:07] LABS: BACTERIA,URINE MODERATE /HPF; EPITHELIAL CELLS,URINE FEW /LPF; WBC,URINE (MAN) 21-50 /HPF (0-5)
[2022-03-23] MEDS ORDERED: ANTIVERT25 M1 PO (23:02)
[2022-03-23] MEDS ORDERED: CEFDINIR300 MG PO (23:02)
== END 2022-03-23 23:18 | disposition home or self-care (01) ==
LOC: ER 20:43
DX: R42 Dizziness and giddiness (principal); N39.0 Urinary tract infection, site not specified; I10 Essential (primary) hypertension; E78.5 Hyperlipidemia, unspecified; F32.A Depression, unspecified; R94.31 Abnormal electrocardiogram [ECG] [EKG]; Z85.3 Personal history of malignant neoplasm of breast; Z85.118 Personal history of other malignant neoplasm of bronchus and lung
CPT/HCPCS: 36415; 70450; 80048; 81001; 85025; 93005; 99284; J8597

== ENCOUNTER 2022-06-11 07:06 | Emergency (ER) | payer MEDICARE ==
[~2022-06-11] VITALS: Ht 170.2 cm; Wt 76.7 kg
[~2022-06-11 07:06] MED LIST changes: +ANTIVERT25 M1 PO; +CEFDINIR300 MG PO
[2022-06-11] MEDS ORDERED: VESICARE5 MG PO (07:57)
[2022-06-11] MEDS ORDERED: MELOXICAM7.5 MG PO (07:57)
[2022-06-11] MEDS ORDERED: CEFUROXIME500 MG PO (09:08)
== END 2022-06-11 09:54 | disposition home or self-care (01) ==
LOC: FSED 07:22
DX: S09.90XA Unspecified injury of head, initial encounter (principal); S20.212A Contusion of left front wall of thorax, initial encounter; R51.9 Headache, unspecified; N39.0 Urinary tract infection, site not specified; I10 Essential (primary) hypertension; E03.9 Hypothyroidism, unspecified; K21.9 Gastro-esophageal reflux disease without esophagitis; W18.39XA Other fall on same level, initial encounter; Y92.009 Unspecified place in unspecified non-institutional (private) residence as the place of occurrence of the external cause; Z88.2 Allergy status to sulfonamides; Z79.82 Long term (current) use of aspirin; Z79.1 Long term (current) use of non-steroidal anti-inflammatories (NSAID); Z79.899 Other long term (current) drug therapy; Z85.3 Personal history of malignant neoplasm of breast; Z85.118 Personal history of other malignant neoplasm of bronchus and lung
CPT/HCPCS: 36415; 70450; 71101; 81003; 82948; 87086; 87186; 99284